=== PATIENT | female | born 1960 | race Caucasian/White ===

== ENCOUNTER → 2017-10-14 09:56 | Outpatient (POV) | payer OTHER, MEDICARE, SELFPAY ==
--- NOTE | 2017-10-14 10:54 | HMH.PAINSOAP ---
[facility] [place] Pain Management SOAP Note Subjective:: This patient is a pleasant 57-year-old white female who presents with increasing low back pain radiating down both legs. She has had lumbar epidural steroid injections in the past which have helped tremendously. It has been several months since her last injection. Her low back pain originates from a [employer]. injury. Her pain is starting to return in her back and down her legs. I do believe that she would benefit from a repeat lumbar epidural steroid injection. We will seek approval and schedule a lumbar epidural steroid injection at L4-L5. Objective:: Alert and oriented ?3 in no acute distress. Tenderness over lower lumbar spine. Motor strength of the lower extremities is 5/5. There is no gross sensory deficit. Assessment:: Degenerative disc disease of lumbar spine with lumbar radiculopathy symptoms. Plan:: We will seek approval and plan on a lumbar epidural steroid injection to help with her back pain and leg pain.
[2017-10-14 12:08] VITALS: BP 174/94; PULSE 75; RESP 18; TEMP 36.6; O2SAT 98; BMI 41.5
== END ==
PROVIDERS: PCP Pediatrics; Visit Provider Anesthesiology
DX: M54.16 Radiculopathy, lumbar region (principal)
CPT/HCPCS: 99212

== ENCOUNTER → 2017-12-30 11:06 | Outpatient (POV) | payer OTHER, MEDICARE, SELFPAY ==
[2017-12-30 11:19] VITALS: BP 172/110; PULSE 90; RESP 18; O2SAT 98; BMI 36.6
--- NOTE | 2017-12-30 11:19 | HMH.PAINSOAP ---
[facility] Pain Management SOAP Note Subjective:: Patient is a pleasant 57-year-old white female who we are treating for post laminectomy syndrome of the lumbar spine with degenerative disc disease of lumbar spine and lumbar radiculopathy. Patient is following up after most recent L4-L5 lumbar epidural steroid injection. She rates her pain a 4 out of 10 today. She states that she has had 80-90% relief of her symptoms. Patient states her pain is a little increased today due to her increased activity. Patient has been able to go swimming and do other activities. Patient is continuing to use anti-inflammatories to help with the small flares in pain. Patient would like to follow-up on an as-needed basis. ROS General: no recent weight change, no fever, no sleep disturbances Respiratory: no cough, no shortness of air, no recurring pulmonary infections Cardiovascular/Peripheral Vascular: No chest pain, No palpitations, no edema, no shortness of breath. Gastrointestinal: no incontinence, normal bowel movements reported Genitourinary: no incontinence Musculoskeletal: Back pain, leg pain Psychiatric: normal mood/ affect Neurological: [denies weakness in extremities], [denies balance issues] Objective:: Physical Exam General: Alert and oriented x3, no acute distress, pleasant and cooperative, [on room air] Lungs: Resps E/U, Symmetrical chest expansion, Eyes: PERRL Musculoskeletal: Flexion and extension of lumbar spine somewhat guarded secondary to pain, deep tendon reflexes normal, strength in upper and lower extremities [5/5], slightly antalgic gait noted Neurological: speech clear, emergency telecommunications dispatcher equal, no gross sensory deficits Assessment:: Degenerative disc disease of the lumbar spine with lumbar radiculopathy symptoms, postlaminectomy syndrome of the lumbar spine Plan:: We will follow-up with this patient on an as-needed basis. Patient is doing extremely well. Patient will call us when she needs another injection. This note was dictated using voice recognition software and may contain errors or omissions
== END ==
PROVIDERS: PCP Pediatrics; Visit Provider Clinical Nurse Specialist Family Health
DX: M54.16 Radiculopathy, lumbar region (principal)
CPT/HCPCS: 99212

== ENCOUNTER → 2018-04-07 14:31 | Outpatient (POV) | payer MEDICARE, SELFPAY ==
--- NOTE | 2018-04-07 14:43 | HMH.PAINSOAP ---
[facility] Pain Management SOAP Note Subjective:: Patient is a pleasant 58-year-old white female who presents today for follow-up. Patient has been receiving lumbar epidural steroid injections from us and receives 80-90% relief of her symptoms for several months. Patient is being treated for pain secondary to postlaminectomy syndrome and degenerative disc disease lumbar spine. Patient's not on any blood thinner. Patient is on an anti-inflammatory. We will schedule her for a L4-L5 lumbar epidural steroid injection. ROS General: no recent weight change, no fever, no sleep disturbances Respiratory: no cough, no shortness of air, no recurring pulmonary infections Cardiovascular/Peripheral Vascular: No chest pain, No palpitations, no edema, no shortness of breath. Gastrointestinal: no incontinence, normal bowel movements reported Genitourinary: no incontinence Musculoskeletal: Back pain, leg pain Psychiatric: normal mood/ affect Neurological: [denies weakness in extremities], [denies balance issues] Objective:: Physical Exam General: Alert and oriented x3, no acute distress, pleasant and cooperative, [on room air] Lungs: Resps E/U, Symmetrical chest expansion, Eyes: PERRL Musculoskeletal: Flexion and extension of lumbar spine somewhat guarded secondary to pain, deep tendon reflexes normal, strength in upper and lower extremities [5/5], slightly antalgic gait noted, positive positive straight leg raise test on the left side at 30 degrees Neurological: speech clear, rattle leak and squeak repairer equal, no gross sensory deficits Assessment:: Postlaminectomy syndrome lumbar spine, degenerative disc disease lumbar spine Plan:: We will schedule a repeat L4-L5 lumbar epidural steroid injection for the patient. Patient is continuing a home stretching program. I will follow-up with her after her injection. This note was dictated using voice recognition software and may contain errors or omissions
[2018-04-07 14:46] VITALS: BP 158/92; PULSE 80; RESP 18; O2SAT 98; BMI 39.9
== END ==
PROVIDERS: PCP Pediatrics; Visit Provider Clinical Nurse Specialist Family Health
DX: M96.1 Postlaminectomy syndrome, not elsewhere classified (principal); M51.36 Other intervertebral disc degeneration, lumbar region
CPT/HCPCS: 99213

== ENCOUNTER → 2018-06-30 11:04 | Outpatient (POV) | payer OTHER, SELFPAY ==
[2018-06-30 11:32] VITALS: BP 147/97; PULSE 89; RESP 18; O2SAT 98; BMI 39.9
--- NOTE | 2018-06-30 11:47 | HMH.PAINSOAP ---
[facility] Pain Management SOAP Note Subjective:: Patient is a pleasant 58-year-old who presents today for follow-up. Patient is doing well after her lumbar epidural steroid injection. She states that she is gotten 80% relief of her symptomology. Patient states this typically last for about 3 months. Patient would like to repeat this in 3 months. She rates her pain a 6 out of 10 today. Mostly in her back and legs at times. ROS General: no recent weight change, no fever, no sleep disturbances Respiratory: no cough, no shortness of air, no recurring pulmonary infections Cardiovascular/Peripheral Vascular: No chest pain, No palpitations, no edema, no shortness of breath. Gastrointestinal: no incontinence, normal bowel movements reported Genitourinary: no incontinence Musculoskeletal: Back pain, leg pain Psychiatric: normal mood/ affect Neurological: [denies weakness in extremities], [denies balance issues] Objective:: Physical Exam General: Alert and oriented x3, no acute distress, pleasant and cooperative, [on room air] Lungs: Resps E/U, Symmetrical chest expansion, Eyes: PERRL Musculoskeletal: Flexion and extension of lumbar spine somewhat guarded secondary to pain, deep tendon reflexes normal, strength in upper and lower extremities [5/5], [abnormal gait noted] Neurological: speech clear, assisted living administrator equal, no gross sensory deficits Assessment:: Degenerative disc disease lumbar spine with lumbar radiculopathy symptoms and postlaminectomy syndrome lumbar spine Plan:: We will follow-up with her and to schedule L4-L5 lumbar epidural steroid injection 3 months after her last one. Patient is not on any anticoagulation therapy. She is continuing a home stretching regimen. Patient is on anti-inflammatories. This note was dictated using voice recognition software and may contain errors or omissions
== END ==
PROVIDERS: PCP Pediatrics; Visit Provider Clinical Nurse Specialist Family Health
DX: M51.16 Intervertebral disc disorders with radiculopathy, lumbar region (principal); M96.1 Postlaminectomy syndrome, not elsewhere classified
CPT/HCPCS: 99213

== ENCOUNTER → 2019-01-27 08:55 | Outpatient (POV) | payer OTHER, SELFPAY ==
--- NOTE | 2019-01-27 09:11 | HMH.PAINSOAP ---
[facility] Pain Management SOAP Note Subjective:: Patient's a pleasant 58-year-old white female who presents today for follow-up. Patient was last seen back in August for an epidural injection. She got 80% relief for several months. She would like to move forward with the second 1. She is not on any anticoagulation therapy she rates her pain a 9 out of 10 mostly in her low back radiating into bilateral legs. Patient has done well with injections in the past. We also talked about adding an anti-inflammatory. She is interested in this. She is not on any anticoagulation therapy and she is continuing a home stretching program. ROS General: no recent weight change, no fever, no sleep disturbances Respiratory: no cough, no shortness of air, no recurring pulmonary infections Cardiovascular/Peripheral Vascular: No chest pain, No palpitations, no edema, no shortness of breath. Gastrointestinal: no incontinence, normal bowel movements reported Genitourinary: no incontinence Musculoskeletal: Back pain, leg pain Psychiatric: normal mood/ affect Neurological: [denies weakness in extremities], [denies balance issues] Objective:: Physical Exam General: Alert and oriented x3, no acute distress, pleasant and cooperative, [on room air] Lungs: Resps E/U, Symmetrical chest expansion, Eyes: PERRL Musculoskeletal: Flexion and extension of lumbar spine somewhat guarded secondary to pain, deep tendon reflexes normal, strength in upper and lower extremities [5/5], [abnormal gait noted] Neurological: speech clear, credit risk management director equal, no gross sensory deficits Assessment:: Degenerative disc disease lumbar spine with lumbar radiculopathy Plan:: We will schedule repeat L4-L5 given the efficacy of the last one. We will also call her in naproxen 500 mg 1 p.o. twice daily. She is been instructed to call the office if she has any issues prior to her next appointment. Dr. Vela has reviewed this note and agrees with this plan of care. This note was dictated using voice recognition software and may contain errors or omissions Pain Management Hx Components *Have you ever received a pneumonia vaccine?: No *Have you received a flu vaccine this season?: No - *Social History *Occupational Status:: employed *Travel in the last 8 weeks: None
[2019-01-27 09:12] VITALS: BP 173/91; PULSE 81; RESP 18; O2SAT 99; BMI 39.9
--- NOTE | 2019-01-27 09:14 | P.CONS_ITS ---
[facility] Pain Management SOAP Note Subjective:: Patient's a pleasant 58-year-old white female who presents today for follow-up. Patient was last seen back in August for an epidural injection. She got 80% relief for several months. She would like to move forward with the second 1. She is not on any anticoagulation therapy she rates her pain a 9 out of 10 mostly in her low back radiating into bilateral legs. Patient has done well with injections in the past. We also talked about adding an anti-inflammatory. She is interested in this. She is not on any anticoagulation therapy and she is continuing a home stretching program. ROS General: no recent weight change, no fever, no sleep disturbances Respiratory: no cough, no shortness of air, no recurring pulmonary infections Cardiovascular/Peripheral Vascular: No chest pain, No palpitations, no edema, no shortness of breath. Gastrointestinal: no incontinence, normal bowel movements reported Genitourinary: no incontinence Musculoskeletal: Back pain, leg pain Psychiatric: normal mood/ affect Neurological: [denies weakness in extremities], [denies balance issues] Objective:: Physical Exam General: Alert and oriented x3, no acute distress, pleasant and cooperative, [on room air] Lungs: Resps E/U, Symmetrical chest expansion, Eyes: PERRL Musculoskeletal: Flexion and extension of lumbar spine somewhat guarded secondary to pain, deep tendon reflexes normal, strength in upper and lower extremities [5/5], [abnormal gait noted] Neurological: speech clear, manager instrumentation equal, no gross sensory deficits Assessment:: Degenerative disc disease lumbar spine with lumbar radiculopathy Plan:: We will schedule repeat L4-L5 given the efficacy of the last one. We will also call her in naproxen 500 mg 1 p.o. twice daily. She is been instructed to call the office if she has any issues prior to her next appointment. Dr. Vela has reviewed this note and agrees with this plan of care. This note was dictated using voice recognition software and may contain errors or omissions Pain Management Hx Components *Have you ever received a pneumonia vaccine?: No *Have you received a flu vaccine this season?: No - *Social History *Occupational Status:: employed *Travel in the last 8 weeks: None
== END ==
PROVIDERS: Visit Provider Clinical Nurse Specialist Family Health
DX: M51.16 Intervertebral disc disorders with radiculopathy, lumbar region (principal)
CPT/HCPCS: 99212

== ENCOUNTER → 2019-08-03 09:43 | Outpatient (POV) | payer OTHER, SELFPAY ==
[2019-08-03 10:27] VITALS: BP 135/78; PULSE 79; RESP 18; O2SAT 99; BMI 39.9
--- NOTE | 2019-08-03 10:31 | HMH.PAINSOAP ---
[facility] Pain Management SOAP Note Subjective:: Patient is a pleasant 59-year-old white female who presents today for follow-up. She is being treated for low back pain with lumbar radiculopathy symptoms. She was seen in January 2019 for a lumbar epidural steroid injection at that time. Patient had a accident involving a bill of pain in 2002 requiring the patient to undergo 2 lumbar spine surgeries. She has also had injections since her surgeries. She is also had a spinal cord stimulator that is no longer bothering relief for her. Patient says that she was doing better following her lumbar epidural steroid injection until the last month. She says her pain is progressively gotten worse. The patient rates her pain a 10 out of 10. She says the pain is worse with standing and walking and is also worse with sitting for prolonged periods. She says she has to reposition often when in a chair. Patient says that it is radiating into her bilateral feet causing her to have numbness and tingling. She has tried physical therapy for greater than 6 weeks, most notably within the last 2 months. She continues with home stretching program. She is also tried anti-inflammatories. She continues using ice and heat therapies. Review of Systems General: No recent weight changes, no fever, no sleep disturbances Respiratory: No cough, no shortness of air, no recurring pulmonary infections Cardiovascular/peripheral vascular: No chest pain, no palpitations, no edema, no shortness of breath Gastrointestinal: No new onset incontinence, normal bowel movements reported Genitourinary: No new onset incontinence Musculoskeletal: Low back pain Psychiatric: Normal mood/affect Neurological: [Denies weakness in extremities], [denies balance issues] Objective:: Physical exam General: Alert and oriented x3, no acute distress, pleasant and cooperative, room air Lungs: Respirations even and unlabored, symmetrical chest expansion Eyes: PERRL Musculoskeletal: Flexion and extension of lumbar spine somewhat guarded secondary to pain, deep tendon reflexes normal, strength in upper and lower extremities [5/5], [abnormal gait noted] Neurological: Speech clear, echo tech equal, no gross sensory deficit Assessment:: Degenerative disc disease lumbar spine with lumbar radiculopathy symptoms Plan:: We will schedule the patient for a lumbar epidural steroid injection at L4-L5. She has had the injection in the past and has gotten good relief for up to 5 months. I think she would benefit from a another injection. She is not on any anticoagulation therapy. She understands she will need a motor coach driver the day of the procedure. Patient will continue with anti-inflammatories and a home stretching program. I did instruct her on the amount of ibuprofen she has been taking. We will give her Duexis to see if she gets relief with this. I will see the patient back in the clinic following her injection to reassess her symptoms. She has been instructed to contact clinic if she has any concerns before her next appointment. Dr. Vela has reviewed this note and agrees with this plan of care. This note was dictated using voice recognition software and make contain errors or omissions. [facility] History Medical History: Reports:: Diabetes Mellitus Type 1, Hypertension Denies:: Cancer, Diabetes Mellitus Type 2, Internal Pacemaker, MRSA, Seizures *Have you ever received a pneumonia vaccine?: Yes *Have you received a flu vaccine this season?: Yes Other Medical History: Reports: Hypothyroidism, Thyroid Disease Laterality Cases: Bilateral: Carpal Tunnel Release Other Surgeries: Yes: No Previous Surgery. No: Pacemaker Amputation: No Fractures: No - *Social History Smoking Status: Former smoker Tobacco Type: cigarettes Alcohol Intake: never Alcohol Intake Frequency:: a few times a month Substance Use Type: denies use *Occupational Status:: other Housing: house Household Members: family *Travel in the
== END ==
PROVIDERS: PCP Pediatrics; Visit Provider Clinical Nurse Specialist Family Health
DX: M51.16 Intervertebral disc disorders with radiculopathy, lumbar region (principal)
CPT/HCPCS: 99212

== ENCOUNTER → 2019-09-14 10:07 | Outpatient (POV) | payer OTHER, SELFPAY ==
--- NOTE | 2019-09-14 10:54 | HMH.PAINSOAP ---
[facility] Pain Management SOAP Note Subjective:: Patient is a pleasant 59-year-old white female who presents today for follow-up after lumbar epidural steroid injection. She is being treated for pain in her low back with radiation into her left leg. Patient says that she got relief following the injection, however, she is return. Rates her pain a 6 out of 10 today. Patient says that the pain is worse with walking and standing and is relieved with sitting. She would like to undergo another injection. She does understand that we are unable to perform any type of injective therapy secondary to coronavirus pandemic at this time. Patient says that she has taken Flexeril in the past and has gotten approximately 40% relief with the medication. She is asking for the medication today until she is able to get an injection. Patient denies any allergies to medications. Review of Systems General: No recent weight changes, no fever, no sleep disturbances Respiratory: No cough, no shortness of air, no recurring pulmonary infections Cardiovascular/peripheral vascular: No chest pain, no palpitations, no edema, no shortness of breath Gastrointestinal: No new onset incontinence, normal bowel movements reported Genitourinary: No new onset incontinence Musculoskeletal: Low back pain, left leg pain Psychiatric: Normal mood/affect Neurological: [Denies weakness in extremities], [denies balance issues] Objective:: Physical exam General: Alert and oriented x3, no acute distress, pleasant and cooperative, [on room air] Lungs: Respirations even and unlabored, symmetrical chest expansion Eyes: PERRL Musculoskeletal: Flexion and extension of [] lumbar spine somewhat guarded secondary to pain, deep tendon reflexes normal, strength in upper and lower extremities [5/5], [abnormal gait noted] Neurological: Speech clear, clearing distribution clerk equal, no gross sensory deficit Assessment:: Degenerative disc disease lumbar spine with lumbar radiculopathy symptoms Plan:: We will plan to perform another lumbar epidural steroid injection and patient are cleared for the facility to begin procedures again. For now, we will call in Flexeril 10 mg 1 tablet p.o. 3 times daily. Patient has been instructed to contact clinic if she has any concerns before next appointment. Dr. Vela has reviewed this note and agrees with this plan of care. This note was dictated using voice recognition software and make contain errors or omissions. [facility] History I have reviewed the patient's past medical history: Yes Medical History: Reports:: Hypertension Denies:: Cancer, Diabetes Mellitus Type 1, Diabetes Mellitus Type 2, Internal Pacemaker, MRSA, Seizures *Have you ever received a pneumonia vaccine?: No *Have you received a flu vaccine this season?: No Other Medical History: Reports: Hypothyroidism, Thyroid Disease. Denies: Blood Transfusion Reaction Laterality Cases: Bilateral: Carpal Tunnel Release Other Surgeries: Yes: No Previous Surgery. No: Pacemaker Amputation: No Fractures: No - *Social History Smoking Status: Former smoker Tobacco Type: cigarettes Alcohol Intake: never Alcohol Intake Frequency:: a few times a month Substance Use Type: denies use *Occupational Status:: disabled Housing: house Household Members: family *Travel in the last 8 weeks: None Family Hx:: Cancer, Diabetes
[2019-09-14 11:15] VITALS: BP 174/84; PULSE 78; RESP 18; O2SAT 98; BMI 39.9
== END ==
PROVIDERS: PCP Pediatrics; Visit Provider Clinical Nurse Specialist Family Health
DX: M51.16 Intervertebral disc disorders with radiculopathy, lumbar region (principal)
CPT/HCPCS: 99212

== ENCOUNTER 2019-12-11 10:42 | Day surgery (SDC) | payer OTHER, SELFPAY ==
[2019-12-11 11:48] VITALS: BP 157/89; PULSE 87; RESP 18; TEMP 36.7; O2SAT 97; BMI 39.9
--- NOTE | 2019-12-11 11:58 | HMH.PMPROC ---
- Procedure Date: 12/11/19 Time: 11:58 Anesthesiologist:: Colin Vela MD Complications:: None Pre-procedure Diagnosis:: Degenerative disc disease of lumbar spine with lumbar radiculopathy symptoms Post-procedure Diagnosis:: Same Indications for Procedure:: This patient is a pleasant 59-year-old white female who we are treating for low back pain with lumbar radiculopathy symptoms. She did very well after last lumbar epidural steroid injection however her pain in her back and down her left leg is now returned. She presents for repeat lumbar epidural steroid injection under fluoroscopy today. Procedure Details:: Lumbar epidural steroid injection under fluoroscopy Informed consent was obtained and the risk and benefits of the procedure was explained to the patient. The patient was taken to the procedure room. The patient was placed prone on the procedure table. The patient was prepped and draped in sterile fashion. C-arm fluoroscopy was used to view the lumbar spine. Skin and subcutaneous tissues were anesthetized using lidocaine. I placed an 18-gauge epidural needle and advanced into the L4-L5 interspace using fluoroscopic guidance and [id number] to air. After confirmation of needle placement in the epidural space with dye I injected 2 mL of lidocaine 1.5% with Depo-Medrol 80 mg. Patient tolerated the procedure well with no complications. Plan and Disposition:: We will follow-up with her in 2 weeks. Will reevaluate her symptoms at that time.
[2019-12-11 12:06] VITALS: BP 142/87; PULSE 85; RESP 18; O2SAT 99
[2019-12-11 12:07] VITALS: BP 145/89; PULSE 89; RESP 18; O2SAT 99
[2019-12-11 12:20] VITALS: BP 163/95; PULSE 75; RESP 18; O2SAT 97
== END 2019-12-11 12:20 | disposition home or self-care (01) ==
LOC: SC.PAINP 10:43
PROVIDERS: PCP Pediatrics; Visit Provider Anesthesiology
DX: M51.16 Intervertebral disc disorders with radiculopathy, lumbar region (principal); I10 Essential (primary) hypertension; Z96.659 Presence of unspecified artificial knee joint; Z82.49 Family history of ischemic heart disease and other diseases of the circulatory system; Z79.899 Other long term (current) drug therapy
CPT/HCPCS: 62323; J1040; Q9966

== ENCOUNTER → 2020-01-07 13:34 | Outpatient (POV) | payer MEDICARE, SELFPAY ==
[2020-01-07 13:42] VITALS: BP 142/88; PULSE 72; RESP 18; TEMP 36.6; O2SAT 97; BMI 39.9
--- NOTE | 2020-01-07 14:05 | HMH.PMCON ---
Assessment and Plan (1) Compression fracture of lumbar vertebra Current visit: Yes Status: Acute Category: Medical Code(s): S32.000A - Wedge compression fracture of unspecified lumbar vertebra, initial encounter for closed fracture (2) Low back pain Current visit: Yes Status: Acute Category: Medical Code(s): M54.5 - Low back pain - Assessment and plan all Dx Assessment and Plan for all problems:: We will make recommendations for an MRI of her lumbar spine. The patient may be a candidate for kyphoplasty. We did discuss the procedure with the patient today. We will also order the patient a brace for stabilization when out of bed. We will see her upon discharge in the clinic to review her MRI and discuss a further plan of care. Patient has been instructed to contact the clinic if she has any concerns before next appointment. The patient and I specifically discussed risk factors for COVID19. These risks include, but are not limited to age greater than 60, heart or lung disease, diabetes, immunosuppression, and travel. We also discussed NSAIDs may worsen COVID19 infection or symptoms. Patient should not use NSAIDs to treat COVID19 signs or symptoms. Patient was also informed that any type of corticosteroid of any form (oral or injection) will decrease the patient's immune system response and may increase the likelihood of COVID19 infection and symptoms[address] Dr. Vela has reviewed this note and agrees with this plan of care. This note was dictated using voice recognition software and make contain errors or omissions. HPI - Data of Consult Patient: new to practice Consult date: 01/07/20 Requesting Physician: Kathy Stearns APRN Primary Care Provider: Ward Krishna - Consult Narrative Reason for consult: Back pain History of present illness: Ms. Tierney is a 59 year old female who is currently hospitalized for low back pain. Patient was seen her hospital room today. Patient says that she was getting up to go to the bathroom around 4 AM this morning and fell. She rates her pain a 4 out of 10 today. Patient is having quite a bit of nausea during the conversation with emesis. She rates her pain a 4 out of 10 today. She did have a CT scan that shows a compression fracture at L1. She and I did discuss undergoing an MRi After further discussion with Dr. Vela. She is in agreement she would like to undergo an MRI to determine if she is a kyphoplasty candidate. Patient did have a DEXA scan in 2012 that did indicate the patient does have osteoporosis. CC: Kathy Stearns APRN [facility] History I have reviewed the patient's past medical history: Yes Medical History: Reports:: Hypertension Denies:: Cancer, Diabetes Mellitus Type 1, Diabetes Mellitus Type 2, Internal Pacemaker, MRSA, Seizures *Have you ever received a pneumonia vaccine?: Yes *Have you received a flu vaccine this season?: Yes Other Medical History: Reports: Hypothyroidism, Thyroid Disease. Denies: Blood Transfusion Reaction Laterality Cases: Bilateral: Carpal Tunnel Release Other Surgeries: Yes: No Previous Surgery, Colonoscopy. No: Pacemaker Amputation: No Fractures: No - *Social History Smoking Status: Never smoker Tobacco Type: cigarettes Alcohol Intake: current Alcohol Intake Frequency:: holidays/special occasions only Substance Use Type: denies use *Occupational Status:: other Housing: house Household Members: significant other *Travel in the last 8 weeks: None Family Hx:: Heart Attack Review of Systems - Review of Systems Review of Systems General: No recent weight changes, no fever, no sleep disturbances Respiratory: No cough, no shortness of air, no recurring pulmonary infections Cardiovascular/peripheral vascular: No chest pain, no palpitations, no edema, no shortness of breath Gastrointestinal: No new onset incontinence, normal bowel movements reported Genitourinary: No new onset incontinence Musculoskeletal: Low back p
== END ==
PROVIDERS: PCP Pediatrics; Visit Provider Clinical Nurse Specialist Family Health
DX: S32.000A Wedge compression fracture of unspecified lumbar vertebra, initial encounter for closed fracture (principal)
CPT/HCPCS: 99212

== ENCOUNTER → 2020-07-11 10:01 | Outpatient (POV) | payer OTHER, MEDICARE, SELFPAY ==
[2020-07-11 10:36] VITALS: BP 200/105; PULSE 92; RESP 20; TEMP 36.5; O2SAT 96; BMI 39.9
--- NOTE | 2020-07-11 13:01 | P.CONS_ITS ---
[facility] Pain Management SOAP Note Subjective:: Patient is a pleasant 60-year-old white female who presents today for follow-up. Patient was seen last year in our office for epidural injections. Patient did extremely well with this stating that she got 80% relief for several months. Patient did get hospitalized for a compression fracture however she wanted to hold off on treatment from our office at the time. This was back in December of last year. Patient now states that her original back pain from her back radiating into her legs has returned. She would like to repeat her lumbar epidural steroid injections. She is not on any anticoagulation therapy. ROS General: no recent weight change, no fever, no sleep disturbances Respiratory: no cough, no shortness of air, no recurring pulmonary infections Cardiovascular/Peripheral Vascular: No chest pain, No palpitations, no edema, no shortness of breath. Gastrointestinal: no new onset incontinence, normal bowel movements reported Genitourinary: no new onset incontinence Musculoskeletal: Back pain, leg pain Psychiatric: normal mood/ affect Neurological: [denies new onset weakness in extremities], [denies new onset balance issues] Objective:: Physical Exam General: Alert and oriented x3, no acute distress, pleasant and cooperative, [on room air] Lungs: Resps E/U, Symmetrical chest expansion, Eyes: PERRL Musculoskeletal: Flexion and extension of lumbar spine somewhat guarded secondary to pain, deep tendon reflexes normal, strength in upper and lower extremities [5/5], [abnormal gait noted] Neurological: speech clear, zipper slide attacher equal, no gross sensory deficits Assessment:: Degenerative disc disease lumbar spine lumbar radiculopathy Plan:: We will set the patient up for an L4-L5 lumbar epidural steroid injection given the efficacy of this in the past I do believe it would benefit her. I will follow-up with her afterwards reassess her symptoms at that time she has been instructed to call the office if she has any issues prior to her next appointment. Dr. Vela has reviewed this note and agrees with this plan of care. This note was dictated using voice recognition software and may contain errors or omissions [facility] History I have reviewed the patient's past medical history: Yes Medical History: Reports:: Hypertension Denies:: Cancer, Diabetes Mellitus Type 1, Diabetes Mellitus Type 2, Internal Pacemaker, MRSA, Seizures *Have you ever received a pneumonia vaccine?: Yes *Have you received a flu vaccine this season?: Yes Other Medical History: Reports: Hypothyroidism, Thyroid Disease. Denies: Blood Transfusion Reaction Laterality Cases: Bilateral: Carpal Tunnel Release Other Surgeries: Yes: No Previous Surgery, Colonoscopy. No: Pacemaker Amputation: No Fractures: No - *Social History Smoking Status: Never smoker Tobacco Type: cigarettes Alcohol Intake: current Alcohol Intake Frequency:: holidays/special occasions only Substance Use Type: denies use *Occupational Status:: unemployed Housing: house Household Members: significant other *Travel in the last 8 weeks: None Family Hx:: Heart Attack
== END ==
PROVIDERS: Visit Provider Clinical Nurse Specialist Family Health
DX: M51.16 Intervertebral disc disorders with radiculopathy, lumbar region (principal)
CPT/HCPCS: 99212; G0463

== ENCOUNTER 2020-08-05 09:53 | Day surgery (SDC) | payer OTHER, MEDICARE, SELFPAY ==
[2020-08-05 09:57] VITALS: BP 175/115; PULSE 95; TEMP 35.9; O2SAT 97; BMI 39.9
[2020-08-05 10:53] VITALS: BP 142/78; PULSE 85; RESP 18; O2SAT 98
[2020-08-05 10:54] VITALS: BP 140/71; PULSE 85; RESP 18; O2SAT 98
[2020-08-05 11:05] VITALS: BP 169/87; PULSE 75; RESP 18; O2SAT 97
--- NOTE | 2020-08-05 12:31 | HMH.PMPROC ---
- Procedure Date: 08/05/20 Time: 12:31 Anesthesiologist:: Colin Vela MD Complications:: None Pre-procedure Diagnosis:: Degenerative disc disease of lumbar spine with lumbar radiculopathy symptoms Post-procedure Diagnosis:: Same Indications for Procedure:: Patient is a pleasant 60-year-old white female who we are treating for low back pain with lumbar radiculopathy symptoms. She does have some back pain with radiation into her legs. She has done well in the past and presents for repeat lumbar epidural steroid injection today. Her last injection was several months ago. Procedure Details:: Lumbar epidural steroid injection under fluoroscopy Informed consent was obtained and the risk and benefits of the procedure was explained to the patient. The patient was taken to the procedure room. The patient was placed prone on the procedure table. The patient was prepped and draped in sterile fashion. C-arm fluoroscopy was used to view the lumbar spine. Skin and subcutaneous tissues were anesthetized using lidocaine. I placed an 18-gauge epidural needle and advanced into the L4-L5 interspace using fluoroscopic guidance and [id number] to air. After confirmation of needle placement in the epidural space with dye I injected 2 mL of lidocaine 1.5% with Depo-Medrol 80 mg. Patient tolerated the procedure well with no complications. Plan and Disposition:: We will follow-up with her in 2 weeks. Will reevaluate her symptoms at that time.
== END 2020-08-05 11:07 | disposition home or self-care (01) ==
LOC: SC.PAINP 09:55
PROVIDERS: PCP Pediatrics; Visit Provider Anesthesiology
DX: M51.16 Intervertebral disc disorders with radiculopathy, lumbar region (principal); I10 Essential (primary) hypertension; E03.9 Hypothyroidism, unspecified; Z87.39 Personal history of other diseases of the musculoskeletal system and connective tissue; Z79.899 Other long term (current) drug therapy
CPT/HCPCS: 62323; J1040; Q9966

== ENCOUNTER → 2020-12-12 08:45 | Outpatient (POV) | payer OTHER, SELFPAY ==
[2020-12-12 09:03] VITALS: BP 169/90; PULSE 73; RESP 18; O2SAT 97; BMI 39.9
--- NOTE | 2020-12-12 09:15 | HMH.PAINSOAP ---
[facility] Pain Management SOAP Note Subjective:: Patient is a 60-year-old white female who presents today for complaints of low back pain with radiation into right foot and leg. Patient is having numbness and tingling into her right lower extremity. She says that her pain is usually present on the left side. She has pain when she is standing and walking. Sitting does give her some relief. She rates her pain a 10 out of 10 today. She has had lumbar epidural steroid injections, which is she gets up to 90% relief for up to 5 months. Her pain has returned to the opposite side. Review of Systems General: No recent weight changes, no fever, no sleep disturbances Respiratory: No cough, no shortness of air, no recurring pulmonary infections Cardiovascular/peripheral vascular: No chest pain, no palpitations, no edema, no shortness of breath Gastrointestinal: No new onset incontinence, normal bowel movements reported Genitourinary: No new onset incontinence Musculoskeletal: Low back pain with radiation into right leg with numbness and tingling in foot Psychiatric: Normal mood/affect Neurological: [Denies weakness in extremities], [denies balance issues] Objective:: Physical exam General: Alert and oriented x3, no acute distress, pleasant and cooperative, [on room air] Lungs: Respirations even and unlabored, symmetrical chest expansion Eyes: PERRL Musculoskeletal: Flexion and extension of [] lumbar spine somewhat guarded secondary to pain, deep tendon reflexes normal, strength in upper and lower extremities [5/5], [abnormal gait noted] Neurological: Speech clear, legal aid equal, no gross sensory deficit Assessment:: Degenerative disc disease lumbar spine with lumbar radiculopathy symptoms Plan:: We will schedule the patient for lumbar epidural steroid injection at L4-L5. Her pain has returned, however, to the opposite side. She is got between 80 to 90% relief for up to 5 months with her previous injection. We will also order the patient Cymbalta 30 mg 1 tablet p.o. daily to see if this helps with her neuropathic pain. She will continue with home stretching and anti-inflammatories. We will see her back after her injection for reevaluation. She has tried and failed conservative therapies of physical therapy for greater than 6 weeks in the past and ice and heat. Risks and benefits of the procedure have been explained to the patient. Patient would like to proceed with the procedure. Possible side effects of corticosteroids have been discussed with the patient. Patient has been instructed to contact the clinic with any concerns before the next appointment. Dr. Vela has reviewed this note and agrees with this plan of care. This note was dictated using voice recognition software and make contain errors or omissions. [facility] History I have reviewed the patient's past medical history: Yes Medical History: Reports:: Hypertension Denies:: Cancer, Diabetes Mellitus Type 1, Diabetes Mellitus Type 2, Internal Pacemaker, MRSA, Seizures *Have you ever received a pneumonia vaccine?: No *Have you received a flu vaccine this season?: No Other Medical History: Reports: Hypothyroidism, Thyroid Disease. Denies: Blood Transfusion Reaction Laterality Cases: Bilateral: Carpal Tunnel Release Other Surgeries: Yes: No Previous Surgery, Colonoscopy. No: Pacemaker Amputation: No Fractures: No - *Social History Smoking Status: Never smoker Tobacco Type: cigarettes Alcohol Intake: never Alcohol Intake Frequency:: holidays/special occasions only Substance Use Type: denies use *Occupational Status:: unemployed Housing: house Household Members: significant other *Travel in the last 8 weeks: None Family Hx:: Heart Attack
== END ==
PROVIDERS: PCP Pediatrics; Visit Provider Clinical Nurse Specialist Family Health
DX: M51.16 Intervertebral disc disorders with radiculopathy, lumbar region (principal)
CPT/HCPCS: 99212; G0463

== ENCOUNTER 2020-12-15 15:39 | Emergency (ER) | payer MEDICARE, SELFPAY ==
[2020-12-15 15:40] VITALS: BP 199/94; PULSE 80; RESP 18; TEMP 36.7; O2SAT 95; BMI 39.9
--- NOTE | 2020-12-15 15:59 | XR_ITS ---
PROCEDURE INFORMATION: Exam: XR Lumbosacral Spine Exam date and time: 12/15/2020 3:59 PM Age: 60 years old Clinical indication: Low back pain; Patient HX: Fall, RT hip pain TECHNIQUE: Imaging protocol: XR of the lumbosacral spine. Views: 2 or 3 views. COMPARISON: No relevant prior studies available. FINDINGS: Bones/joints: L5-S1 fusion. Multilevel degenerative disc disease, most prominent at L4-L5. Soft tissues: Biomedical device/cyst neural stimulator. IMPRESSION: No acute findings.
--- NOTE | 2020-12-15 16:04 | HMH.EDUTC ---
[facility] Disposition Clinical Impression: Low back pain Qualifiers: Chronicity: unspecified Back pain laterality: midline Sciatica presence: with sciatica Sciatica laterality: sciatica of right side Qualified Code(s): M54.41 - Lumbago with sciatica, right side Disposition: Home, Self-Care Condition on Discharge: Good Instructions: Low Back Pain, DI for Low Back Pain Additional Instructions: *Etodolac allie 6 hours with meal as needed for pain/inflammation *Not additional anti-inflammatory like Ibuprofen, motrin, aleve, advil with the above amount of Etodolac. You can still take Tylenol every 4 hours as needed if you need something else for pain *Ice 20 minutes every 2 hours for the first 48 hours after the initial injury followed by moist heat every 20 minutes 3-4 times a day to affected area *Muscle relaxer every 8 hours as needed for muscle spasms but remember, it WILL cause drowsiness You cannot take it and drive, operate machinery or care for small children. *Keep this area active, no movement leads to more stiffness, However take it easy and avoid heavy lifting pushing or pulling *Follow up with you family doctor if no improvement for further treatment Prescriptions: Etodolac 200 mg PO Q6HP PRN #20 cap PRN Reason: Moderate Pain Transmission Status: Pending to [id number] Cyclobenzaprine HCl [Flexeril 10mg tablet] 10 mg PO TID PRN #15 tab PRN Reason: Muscle Spasm Transmission Status: Pending to [id number] Referrals: Ward Krishna [Primary Care Provider] - As needed Medical Decision Making - Nir Inquiry Pt receiving controlled substance: No Nir was queried for this patient: No Vital Signs: 12/15/20 15:40 12/15/20 17:36 Temperature 98.0 F 98.0 F Temperature Source Oral Pulse Rate 80 Pulse Rate [Left Brachial] 80 Respiratory Rate 18 18 Blood Pressure 199/94 H Blood Pressure [Left Arm] 199/94 H Blood Pressure Mean [Left Arm] 129 Blood Pressure Source [Left Arm] Automatic Cuff Blood Pressure Position [Left Arm] Sitting 02 Sat by Pulse Oximetry 95 Oxygen Delivery Method Room Air Orders (Tests/Meds): ED MEDICATIONS Discontinued Medications Generic Name Dose Route Start Last Admin Trade Name Freq PRN Reason Stop Dose Admin Methylprednisolone Sodium Succinate 125 mg 12/15/20 17:26 12/15/20 17:27 Methylprednisolone Sod Succ 125mg Vial IM 12/15/20 17:27 125 mg ONCE ONE Administration - Radiology Data #1 Image(s): L-Spine Image Reviewed: Yes I have reviewed radiologist's interpretation IMPRESSION: No acute findings. #2 Image(s): Hip Image Reviewed: Yes I have reviewed radiologist's interpretation Preliminary Findings: Normal/NAD IMPRESSION: No acute findings. [facility] HPI - General Stated complaint: AO 12/07 fell at [place] injured Hip Time Seen by Provider: 12/15/20 16:04 Mode of Arrival: Ambulatory Source of Information: Patient Limitations: No Limitations Description of Symptoms (Recalled from Triage Doc. by RN): PATIENT STATES ON 12/07 SHE FELL [place]. C/O LOWER BACK AND RIGHT HIP PAIN SINCE THEN. HEENT Symptoms (Recalled from RN notes): No Resp Symptoms (Recalled from RN notes): No Skin Symptoms (Recalled from RN notes): No MS Symptoms (Recalled from RN notes): Yes Functional Status (Recalled from RN notes): WNL - History of Present Illness Provider Complaint: Patient states that she slipped and fell on a wet floor at [place] on 12/07/20 States that ever since she has been having pain in her lower back area and in her right hip and pain shoots into leg when she raises it from her hip State that she had back surgery many years ago and not had any back problems since her surgery Denies any other injury denies loss of control of bowel or bladder - Related Data Home Medications Medication Instructions Recorded Confirmed levothyroxine 75 mcg capsule 75 mcg PO ONCE 08/18/17 08/05/20 Amlodipine Besylate [Amlodipine 10 mg PO D
--- NOTE | 2020-12-15 16:14 | XR_ITS ---
PROCEDURE INFORMATION: Exam: XR Right Hip Exam date and time: 12/15/2020 4:14 PM Age: 60 years old Clinical indication: Right hip; Patient HX: Fall, RT hip pain TECHNIQUE: Imaging protocol: XR Right hip. Views: 2 or 3 views hip with pelvis when performed. COMPARISON: CR XR LUMBAR SPINE 2-3V 12/15/2020 4:02 PM FINDINGS: Bones/joints: No fracture, unremarkable right hip. L5-S1 fusion. Soft tissues: Unremarkable. IMPRESSION: No acute findings.
[2020-12-15 17:30] VITALS: BP 162/74
[2020-12-15 17:36] VITALS: BP 199/94; PULSE 80; RESP 18; TEMP 36.7; O2SAT 95
== END 2020-12-15 17:45 | disposition home or self-care (01) ==
PROVIDERS: Emergency Provider Physician Assistant; PCP Pediatrics
DX: M54.41 Lumbago with sciatica, right side (principal); W01.0XXA Fall on same level from slipping, tripping and stumbling without subsequent striking against object, initial encounter; Y92.89 Other specified places as the place of occurrence of the external cause; I10 Essential (primary) hypertension; E03.9 Hypothyroidism, unspecified
CPT/HCPCS: 72100; 73502; 96372; 99202; G0463

== ENCOUNTER 2020-12-23 08:40 | Day surgery (SDC) | payer OTHER, SELFPAY ==
[2020-12-23 08:59] VITALS: BP 187/82; PULSE 88; RESP 18; TEMP 36.6; O2SAT 98; BMI 39.9
[2020-12-23 09:24] VITALS: BP 167/99; PULSE 94; RESP 18; O2SAT 96
[2020-12-23 09:28] VITALS: BP 150/95; PULSE 92; RESP 18; O2SAT 96
--- NOTE | 2020-12-23 09:45 | HMH.PMPROC ---
- Procedure Date: 12/23/20 Time: 09:45 Anesthesiologist:: Symone Nguyễn MD Complications:: None Pre-procedure Diagnosis:: Degenerative disc disease of the lumbar spine, lumbar radiculopathy Post-procedure Diagnosis:: Same Indications for Procedure:: Patient is a very pleasant 60-year-old white female who presents today with chronic back pain radiating into both legs related to the above diagnosis. She has tried and failed conservative treatment including oral pain medications and home stretching program for greater than 6 weeks. She has previously undergone multiple lumbar epidural steroid injections in the past with significant pain relief, noting approximately 90% pain relief for 5 months. She notes that she fell a few weeks ago at [employer] in the garden section. She said she is slipped on some water that was on the floor and since then she has been having significantly increased pain in her low back going down her legs. She states that she was evaluated after the fall and had x-rays done of her back which did not show any signs of acute fractures. The plan for today is for her to undergo repeat lumbar epidural steroid injection at L3-L4. Procedure Details:: Informed consent was obtained and the risk and benefits of the procedure was explained to the patient. The patient was taken to the procedure room. The patient was placed prone on the procedure table. The patient was prepped and draped in sterile fashion. C-arm fluoroscopy was used to view the lumbar spine. Skin and subcutaneous tissues were anesthetized using lidocaine. I placed an 18-gauge epidural needle and advanced into the L3-L4 interspace using fluoroscopic guidance and [id number] to air and saline. After confirmation of needle placement in the epidural space with dye I injected 2 mL of lidocaine 1.0% with Depo-Medrol 80 mg. Patient tolerated the procedure well with no complications. Plan and Disposition:: We will follow up with her in 2 weeks. Will re-evaluate the patient in 2 weeks.
[2020-12-23 10:00] VITALS: BP 152/92; PULSE 77; RESP 20; O2SAT 98
== END 2020-12-23 10:00 | disposition home or self-care (01) ==
LOC: SC.PAINP 08:42
PROVIDERS: PCP Pediatrics; Visit Provider Anesthesiology Pain Medicine
DX: M51.16 Intervertebral disc disorders with radiculopathy, lumbar region (principal); I10 Essential (primary) hypertension; E07.9 Disorder of thyroid, unspecified; Z96.82 Presence of neurostimulator
CPT/HCPCS: 62323; J1040; Q9966

== ENCOUNTER → 2021-01-16 14:57 | Outpatient (POV) | payer OTHER, SELFPAY ==
[2021-01-16 15:21] VITALS: BP 144/82; PULSE 88; RESP 18; O2SAT 96; BMI 39.9
--- NOTE | 2021-01-16 15:45 | HMH.PAINSOAP ---
[facility] Pain Management SOAP Note Subjective:: Patient is a pleasant 60-year-old white female that presents today for follow-up. She had lumbar epidural steroid injection on December 23, 2020. She did not get relief from her epidural steroid injection. Patient is rating her pain today a 10 out of 10. She states that she has followed up with Dr. Cuadra since her epidural injection, the hardware from her lumbar fusion has moved this is causing increasing discomfort in her low back. She is going to have to have revision of her lumbar fusion. At this time she is willing to hold off on any further injective therapy until after her revision. She is not currently prescribed any controlled substances from our office. Her Nir number is [id number] she has an active morphine equivalent of 0. Review of Systems General: No recent weight changes, no fever, no sleep disturbances Respiratory: No cough, no shortness of air, no recurring pulmonary infections Cardiovascular/peripheral vascular: No chest pain, no palpitations, no edema, no shortness of breath Gastrointestinal: No new onset incontinence, normal bowel movements reported Genitourinary: No new onset incontinence Musculoskeletal: Low back pain Psychiatric: [Normal mood/affect] Neurological: [Denies weakness in extremities], [denies balance issues] Objective:: Physical exam General: Alert and oriented x3 no acute distress, pleasant and cooperative, [on room air] Lungs: Respirations even and unlabored, symmetrical chest expansion Eyes: PERRL Musculoskeletal: Flexion and extension of the lumbar spine nonguarded, deep tendon reflexes normal, strength in upper and lower extremities 5 out of 5 normal gait noted Neurological: Speech clear, managed services consultant equal, no gross sensory deficit Assessment:: Degenerative disc disease of the lumbar spine, lumbar radiculopathy Plan:: At this time the patient can follow-up on an as-needed basis. As she will likely require revision of her lumbar fusion with Dr. Cuadra. She is welcome to contact the clinic at any time for follow-up appointment. Dr. Vela has reviewed this note and agrees with this plan of care. This note was dictated using voice recognition software and make contain errors or omissions. [facility] History Medical History: Reports:: Hypertension Denies:: Cancer, Diabetes Mellitus Type 1, Diabetes Mellitus Type 2, Internal Pacemaker, MRSA, Seizures *Have you ever received a pneumonia vaccine?: No *Have you received a flu vaccine this season?: No Other Medical History: Reports: Hypothyroidism, Thyroid Disease. Denies: Blood Transfusion Reaction Laterality Cases: Bilateral: Carpal Tunnel Release Other Surgeries: Yes: No Previous Surgery, Colonoscopy, Other (plate in back/disc surgery). No: Pacemaker Amputation: No Fractures: No - *Social History Smoking Status: Never smoker Tobacco Type: cigarettes Alcohol Intake: never Alcohol Intake Frequency:: holidays/special occasions only Substance Use Type: denies use *Occupational Status:: employed Housing: house Household Members: significant other *Travel in the last 8 weeks: None Family Hx:: Heart Attack
== END ==
PROVIDERS: PCP Pediatrics; Visit Provider Family Medicine
DX: M51.16 Intervertebral disc disorders with radiculopathy, lumbar region (principal)
CPT/HCPCS: 99212; G0463

== ENCOUNTER 2021-07-13 12:32 | Emergency (ER) | payer MEDICARE, SELFPAY ==
[2021-07-13 15:00] VITALS: BP 160/89; PULSE 76; RESP 18; TEMP 36.8; O2SAT 98; BMI 45.3
--- NOTE | 2021-07-13 15:15 | XR_ITS ---
FINAL REPORT CLINICAL HISTORY: C/O LEFT POSTERIOR RIB PAIN THAT WRAPS AROUND AND HURTS ANTERIORLY FINDINGS: LEFT RIBS For views of the left ribs show no fractures. There is no pneumothorax or pleural fluid collection. There is a stimulator device in the midthoracic spine. IMPRESSION: Negative left rib series. No pneumothorax. Reviewed, Interpreted and Dictated by Tomás Kelly MD Transcribed by Manju Jo Authenticated by Tomás Kelly MD on 07/13/2021 04:25:53 PM [facility]
--- NOTE | 2021-07-13 15:31 | HMH.EDUTC ---
[facility] [place] Disposition Clinical Impression: Rib pain on left side Disposition: Home, Self-Care Condition on Discharge: Good Instructions: DI for Chronic Pain -- Adult, Naproxen Additional Instructions: *Not additional anti-inflammatory like Ibuprofen, motrin, aleve, advil with Naproxen. You can still take Tylenol every 4 hours as needed if you need something else for pain *Ice 20 minutes every 2 hours for the first 48 hours after the initial injury followed by moist heat every 20 minutes 3-4 times a day to affected area Over the counter Lidocaine pain patch may help. *Keep this area active, no movement leads to more stiffness, However take it easy and avoid heavy lifting pushing or pulling *Follow up with you family doctor if no improvement for further treatment Continued taking prescribed antibiotics as prescribed Return if needed Straight to ER if any life threatening symptoms Prescriptions: Naproxen [Naproxen 500mg tab] 500 mg PO BID PRN #10 tab PRN Reason: Moderate Pain Transmission Status: Pending to [id number] Referrals: Ward Dow MD [Primary Care Provider] - As needed Time of Disposition: 16:02 Medical Decision Making - Nir Inquiry Pt receiving controlled substance: No Nir was queried for this patient: No Vital Signs: 07/13/21 15:00 Temperature 98.3 F Temperature Source Oral Pulse Rate [Right Brachial] 76 Respiratory Rate 18 Blood Pressure [Right Arm] 160/89 H Blood Pressure Mean [Right Arm] 112 Blood Pressure Source [Right Arm] Automatic Cuff Blood Pressure Position [Right Arm] Sitting 02 Sat by Pulse Oximetry 98 Oxygen Delivery Method Room Air Orders (Tests/Meds): ED MEDICATIONS Discontinued Medications Generic Name Dose Route Start Last Admin Trade Name Freq PRN Reason Stop Dose Admin Methylprednisolone Sodium Succinate 125 mg 07/13/21 15:57 Methylprednisolone Sod Succ 125mg Vial IM 07/13/21 15:58 ONCE ONE ORDERS Category Date Time Status XR ribs LT min 3V w CXR1V Stat Exams 07/13/21 15:15 Taken - Radiology Data #1 Image(s): Chest (with left ribs) Image Reviewed: Yes I reviewed the patient's radiology image w/the ED provider Preliminary Findings: No Fracture Seen no acute finding [facility] [place] HPI - General Stated complaint: upper back pain Time Seen by Provider: 07/13/21 15:31 Mode of Arrival: Ambulatory Source of Information: Patient Limitations: No Limitations Description of Symptoms (Recalled from Triage Doc. by RN): PATIENT C/O UPPER BACK AND LEFT RIB PAIN SINCE THIS MORNING HEENT Symptoms (Recalled from RN notes): No Resp Symptoms (Recalled from RN notes): No Skin Symptoms (Recalled from RN notes): No MS Symptoms (Recalled from RN notes): Yes Functional Status (Recalled from RN notes): WNL - History of Present Illness Provider Complaint: Patient states that she was seen and treated for Bronchitis a week or so ago States that she has still been having pressure like feeling in her ears and this morning she started having pain in her right ribs area States that she hasnt been coughing and not sure if she may have turned wrong or something and pulled something but she came in to get checked - Related Data Home Medications Medication Instructions Recorded Confirmed levothyroxine 88 mcg tablet 88 mcg PO DAILY tab 06/20/21 07/13/21 Previous Rx's Medication Instructions Recorded Naproxen [Naproxen 500mg tab] 500 mg PO BID PRN #10 tab 07/13/21 Allergies Allergy/AdvReac Type Severity Reaction Status Date / Time No Known Allergies Allergy Verified 06/20/21 17:23 - Worker's Comp Is this a Worker's Comp case?: No [facility] History - Hepatitis A Screen Drug use history?: No High risk sexual behaviors?: No History of sexually transmitted infection?: No Currently employed?: No Childcare worker?: No Do you have indoor plumbing?: Yes Do you have electricity?: Yes Attestation statement:: This patient has b
[2021-07-13 16:10] VITALS: BP 160/89; PULSE 76; RESP 18; TEMP 36.8; O2SAT 98
== END 2021-07-13 16:17 | disposition home or self-care (01) ==
PROVIDERS: Emergency Provider Nurse Practitioner; PCP Pediatrics
DX: R07.89 Other chest pain (principal); I10 Essential (primary) hypertension
CPT/HCPCS: G0463; 71101; 96372; 99202

== ENCOUNTER 2021-07-16 16:30 | Emergency (ER) | payer MEDICARE, SELFPAY ==
[2021-07-16] VITALS (7 sets, daily range): BP systolic 145–170; BP diastolic 80–95; PULSE 68–77; RESP 13–18; TEMP 36.6; O2SAT 96–99; BMI 39.9
--- NOTE | 2021-07-16 16:32 | ECG_ITS ---
APPROVED REPORT Exam: Resting ECG HR:82 bpm ECG Measurements Heart Rate 82 AXES DE 152 P 53 QRSd 90 QRS 35 QT 338 T 61 QTc 377 Conclusion SINUS RHYTHM NORMAL ECG UNCONFIRMED REPORT Electronically signed by : Beau Barragan MD 07/17/2021 17:27:20
--- NOTE | 2021-07-16 17:08 | XR_ITS ---
PROCEDURE INFORMATION: Exam: XR Chest Exam date and time: 07/16/2021 5:08 PM Age: 61 years old Clinical indication: Left-sided; Patient HX: Left sided chest pain, light headed TECHNIQUE: Imaging protocol: XR of the chest. Views: 1 view. Total images: 1 COMPARISON: CR XR RIBS LT MIN 3V W CXR1V 07/13/2021 3:19 PM FINDINGS: Tubes, catheters and devices: Spinal stimulator unchanged without gross complication. Lungs: Pulmonary vasculature grossly normal. Small rounded zone of alveolar density projecting over the central left base near the left heart border which is new since prior exam. This could represent developing pneumonia. Pleural spaces: Slightly blunted left lateral costophrenic angle may be due to minimal effusion or basilar atelectasis. No pneumothorax. Heart/Mediastinum: Heart size normal. No tracheal/mediastinal shift. Vasculature: Mild aortic ectasia/tortuosity. Mild-moderate aortic ectasia/tortuosity. Bones/joints: No gross osseous abnormalities are identified. IMPRESSION: 1. New alveolar density in the central left base could represent developing pneumonia versus atelectasis. 2. Slightly blunted left lateral costophrenic angle which may be due to atelectasis or minimal basilar effusion.
--- NOTE | 2021-07-16 17:20 | PC.NURSE ---
Radiology at bedside for x-ray.
[2021-07-16 17:40] LABS: Basophils # 0.2 K/mm3 (0-0.2); Basophils % 1.2 % (0.1-2.0); Eosinophils # 0.4 K/mm3 (0.0-0.4); Eosinophils % 2.3 % (0.1-12.0); Hematocrit 46.6 % (37.0-47.0); Hemoglobin 14.8 g/dL (12.2-16.2); Lymphocytes # 4.1 K/mm3 (0.7-4.5); Lymphocytes % 25.3 % (10-50); Mean Corpuscular HGB Conc 31.7 g/dL (31.8-35.4); Mean Corpuscular Hemoglobin 30.4 pg (27.0-31.2); Mean Corpuscular Volume 95.9 fl (81-99); Mean Platelet Volume 9.3 fl (7.4-10.4); Monocytes # 1.1 K/mm3 (0.1-1.0); Monocytes % 7.1 % (1.7-9.3); Neutrophils # 10.3 K/mm3 (1.8-7.8); Neutrophils % 64.1 % (37.0-80.0); Platelet Count 341 K/mm3 (142-424); Red Blood Count 4.86 M/mm3 (4.20-5.40); Red Cell Distribution Width 13.3 % (11.5-17.5); White Blood Count 16.1 K/mm3 (4.8-10.8)
[2021-07-16 17:41] LABS: MANUAL DIFFERENTIAL MANUAL DIFFERENTIAL (MANUAL DIFF)
[2021-07-16 17:45] LABS: Alanine Aminotransferase 34 U/L (12-78); Albumin Level 4.6 g/dl (3.5-5.0); Albumin/Globulin Ratio 1.4 (1.1-1.8); Alkaline Phosphatase 78 U/L (38-126); Anion Gap 10.9 mEq/L (5-15); Aspartate Amino Transferase 36 U/L (14-36); Bilirubin,Total 0.5 mg/dl (0.2-1.3); Blood Urea Nitrogen 20 mg/dl (7-17); Calcium 9.5 mg/dl (8.4-10.2); Carbon Dioxide 30 mmol/L (22.0-30.0); Chloride 103 mmol/L (98-107); Creatinine Clearance Estimated 114 mL/min (50-200); Estimated Glomerular Filt Rate 64 ml/min (>60); GFR (African American) 77 ML/MIN (>60); Globulin 3.3 g/dL (1.3-3.2); Glucose 93 mg/dl (74-100); Potassium 3.9 mmoL/L (3.5-5.1); Sodium 140 mmol/L (136-145); Total Protein,Serum 7.9 g/dl (6.3-8.2)
[2021-07-16 17:50] LABS: D-Dimer 0.48 ug/mL (0.0-0.5)
[2021-07-16 18:28] LABS: Eosinophils % 3 % (0-3); Lymphocytes % 22 % (10-50); Monocytes % 8 % (2-9); Neutrophils % 67 % (42-76); Platelet Estimate Normal; RBC Morphology Normal; Total Cells Counted 100
[2021-07-16 18:30] LABS: Troponin I < 0.01 ng/ml (0.00-0.034)
[2021-07-16 19:14] LABS: Troponin I < 0.01 ng/ml (0.00-0.034)
--- NOTE | 2021-07-16 19:39 | HMH.EDGENADL ---
ED Disposition Clinical Impression: Musculoskeletal chest pain Disposition: Home, Self-Care Condition on Discharge: Good Instructions: DI for Atypical Chest Pain Additional Instructions: Please continue Tylenol and ibuprofen every 6 hours for the next 3 to 5 days. You may also take the muscle relaxers previously prescribed to you. You may additionally use heat on the area of pain or lidocaine patches that you can get [id number]. Continue to monitor symptoms with the development of fever, productive cough or other systemic symptoms. If your condition worsens or other concerns arise, please return to the emergency department. Otherwise, please see your primary care physician next week for reassessment. Referrals: Ward Dow MD [Primary Care Provider] - - Critical Care Critical Care Time: No Attestation: On 07/16/21, the high probability of a clinically significant, sudden or life threatening deterioration of the following system(s) required my full and direct attention, intervention and personal management. The time I documented below is in addition to time spent performing reported procedures but includes the following listed in this critical care notation. Medical Decision Making - Medical Records Medical records reviewed: Yes: I reviewed the patient's medical records. - Nir Inquiry Pt receiving controlled substance: No Vital Signs: 07/16/21 16:44 07/16/21 16:45 07/16/21 17:00 Temperature 98 F Temperature Source Oral Pulse Rate 73 68 Pulse Rate [Radial] 75 Respiratory Rate 18 15 15 Blood Pressure 170/95 H 161/93 H Blood Pressure [Right Arm] 161/93 H Blood Pressure Mean [Right Arm] 115 Blood Pressure Position [Right Arm] Sitting 02 Sat by Pulse Oximetry 98 97 99 Oxygen Delivery Method Room Air 07/16/21 17:30 07/16/21 18:00 07/16/21 18:31 Temperature Temperature Source Pulse Rate 70 68 77 Pulse Rate [Radial] Respiratory Rate 14 13 17 Blood Pressure 162/88 H 158/91 H 145/80 H Blood Pressure [Right Arm] Blood Pressure Mean [Right Arm] Blood Pressure Position [Right Arm] 02 Sat by Pulse Oximetry 96 97 97 Oxygen Delivery Method 07/16/21 19:54 Temperature 98 F Temperature Source Oral Pulse Rate 69 Pulse Rate [Radial] Respiratory Rate 15 Blood Pressure 157/92 H Blood Pressure [Right Arm] Blood Pressure Mean [Right Arm] Blood Pressure Position [Right Arm] 02 Sat by Pulse Oximetry Oxygen Delivery Method Room Air - Lab Data Lab results reviewed: Yes: I reviewed the patient's lab results. Lab Results 07/16/21 16:46: WBC 16.1 H, RBC 4.86, Hgb 14.8, Hct 46.6, MCV 95.9, MCH 30.4, MCHC 31.7 L, RDW 13.3, Plt Count 341, MPV 9.3, Neut % (Auto) 64.1, Lymph % (Auto) 25.3, [place] % (Auto) 7.1, Eos % (Auto) 2.3, Baso % (Auto) 1.2, Neut # (Auto) 10.3 H, Lymph # (Auto) 4.1, [place] # (Auto) 1.1 H, Eos # (Auto) 0.4, Baso # (Auto) 0.2, Total Counted 100, Neutrophils % (Manual) 67, Lymphocytes % (Manual) 22, Monocytes % (Manual) 8, Eosinophils % (Manual) 3, Platelet Estimate Normal, RBC Morphology Normal 07/16/21 16:46: D-Dimer 0.48 07/16/21 16:46: Sodium 140, Potassium 3.9, Chloride 103, Carbon Dioxide 30, Anion Gap 10.9, BUN 20 H, Creatinine 0.90, Estimated Creat Clear 114, Estimated GFR 64, Est GFR ( Amer) 77, Glucose 93, Calcium 9.5, Total Bilirubin 0.5, AST 36, ALT 34, Alkaline Phosphatase 78, Troponin I < 0.01, Total Protein 7.9, Albumin 4.6, Globulin 3.3 H, Albumin/Globulin Ratio 1.4 07/16/21 18:40: Troponin I < 0.01 Result diagrams: 07/16/21 16:46 07/16/21 16:46 Orders (Tests/Meds): ED MEDICATIONS Discontinued Medications Generic Name Dose Route Start Last Admin Trade Name Jean-Claude PRN Reason Stop Dose Admin Acetaminophen 1,000 mg 07/16/21 17:09 07/16/21 17:47 Acetaminophen 500mg Tab PO 07/16/21 17:10 1,000 mg ONCE ONE Administration Aspirin 324 mg 07/16/21 16:47 07/16/21 16:48 Aspirin 81mg Chewable Tablet PO
== END 2021-07-16 19:57 | disposition home or self-care (01) ==
PROVIDERS: Emergency Provider Emergency Medicine; PCP Pediatrics
DX: R07.89 Other chest pain (principal); I10 Essential (primary) hypertension; E03.9 Hypothyroidism, unspecified
CPT/HCPCS: 71045; 80053; 84484; 85007; 85025; 85378; 93005; 96376; 99282; J2405

== ENCOUNTER 2021-07-26 11:17 | Emergency (ER) | payer MEDICARE, SELFPAY ==
[2021-07-26 11:29] VITALS: BP 180/95; PULSE 87; RESP 18; TEMP 37; O2SAT 97; BMI 38.7
--- NOTE | 2021-07-26 11:51 | HMH.EDUTC ---
[facility] [place] Disposition Condition on Discharge: Good <AdrianaCurtis - Last Filed: 07/26/21 19:23> Condition on Discharge: Good <Joan Larios - Last Filed: 07/26/21 20:58> Clinical Impression: Pituitary mass Pain in head Qualifiers: Headache type: unspecified Headache chronicity pattern: unspecified pattern Intractability: not intractable Qualified Code(s): R51.9 - Headache, unspecified Disposition: Home, Self-Care Instructions: DI for Headache Additional Instructions: follow up with neurosurgery, they are going to call you for an appt. Prescriptions: Hydrocodone/Acetaminophen [Hydrocodone-Acetamin 7.5-325] 1 tab PO TID PRN #10 tab PRN Reason: Moderate To Severe Pain Transmission Status: Received by [id number] Referrals: Ward Dow MD [Primary Care Provider] - Medical Decision Making - Medical Records Medical records reviewed: Yes: I reviewed the patient's medical records. - Nir Inquiry Pt receiving controlled substance: No - Lab Data Result diagrams: 07/26/21 12:11 07/26/21 12:11 <AdrianaCurtis - Last Filed: 07/26/21 19:23> - Nir Inquiry Pt receiving controlled substance: No Nir was queried for this patient: No - Lab Data Result diagrams: 07/26/21 12:11 07/26/21 12:11 <RicJoan Navarrete - Last Filed: 07/26/21 20:58> Vital Signs: 07/26/21 11:29 07/26/21 12:42 07/26/21 13:01 Temperature 98.6 F 97.5 F L Temperature Source Oral Oral Pulse Rate 68 Pulse Rate [Left] 87 79 Respiratory Rate 18 18 18 Blood Pressure 150/86 H Blood Pressure [Right Arm] 180/95 H 167/93 H Blood Pressure Mean 115 Blood Pressure Mean [Right Arm] 123 117 Blood Pressure Source Blood Pressure Source [Right Arm] Automatic Cuff Blood Pressure Position Blood Pressure Position [Right Arm] Sitting 02 Sat by Pulse Oximetry 97 98 98 Oxygen Delivery Method Room Air 07/26/21 13:31 07/26/21 15:09 Temperature 97.5 F L Temperature Source Oral Pulse Rate 72 73 Pulse Rate [Left] Respiratory Rate 18 18 Blood Pressure 132/74 156/83 H Blood Pressure [Right Arm] Blood Pressure Mean 93 Blood Pressure Mean [Right Arm] Blood Pressure Source Automatic Cuff Blood Pressure Source [Right Arm] Blood Pressure Position Sitting Blood Pressure Position [Right Arm] 02 Sat by Pulse Oximetry 98 Oxygen Delivery Method Room Air - Lab Data Lab Results 07/26/21 12:11: WBC 9.7, RBC 4.44, Hgb 13.4, Hct 43.0, MCV 97.0, MCH 30.3, MCHC 31.2 L, RDW 13.7, Plt Count 280, MPV 8.7, Neut % (Auto) 67.4, Lymph % (Auto) 25.1, [place] % (Auto) 4.7, Eos % (Auto) 2.1, Baso % (Auto) 0.8, Neut # (Auto) 6.5, Lymph # (Auto) 2.4, [place] # (Auto) 0.5, Eos # (Auto) 0.2, Baso # (Auto) 0.1 07/26/21 12:11: Sodium 136, Potassium 4.0, Chloride 102, Carbon Dioxide 27, Anion Gap 11.0, BUN 14, Creatinine 0.90, Estimated Creat Clear 114, Estimated GFR 64, Est GFR ( Amer) 77, Glucose 95, Calcium 8.5, Total Bilirubin 0.5, AST 27, ALT 25, Alkaline Phosphatase 83, Troponin I < 0.01, Total Protein 7.7, Albumin 4.4, Globulin 3.3 H, Albumin/Globulin Ratio 1.3 07/26/21 12:11: TSH 3.18 Orders (Tests/Meds): ED MEDICATIONS Discontinued Medications Generic Name Dose Route Start Last Admin Trade Name Jean-Claude PRN Reason Stop Dose Admin Dexamethasone Sodium Phosphate 8 mg 07/26/21 14:31 07/26/21 15:08 Dexamethasone 4mg/Ml 1ml Vial IV 07/26/21 14:32 8 mg ONCE ONE Administration Gabapentin 300 mg 07/26/21 14:31 07/26/21 15:08 Gabapentin 300mg Capsule PO 07/26/21 14:32 300 mg ONCE ONE Administration Ketorolac Tromethamine 15 mg 07/26/21 12:35 07/26/21 13:00 Ketorolac 30mg/Ml Vial IV 07/26/21 12:36 15 mg ONCE ONE Administration Metoclopramide HCl 5 mg 07/26/21 12:36 07/26/21 13:00 Metoclopramide Hcl 10mg/2ml Vial IVP 07/26/21 12:37 5 mg ONCE ONE Administration Oxycodone/Acetaminophen 1 each 07/26/21 12:36 07/26/21 13:00 Oxycodone 5mg W/Apap 325mg
--- NOTE | 2021-07-26 12:04 | CT_ITS ---
FINAL REPORT CLINICAL HISTORY: right temporal pain with headache FINDINGS: Axial images of the head were obtained without contrast. Coronal reformatted images were also obtained.This study was performed with techniques to keep radiation doses as low as reasonably achievable (ALARA). Individualized dose reduction techniques using automated exposure control or adjustment of mA and/or kV according to the patient''s size were employed. There is abnormal soft tissue in the sella measuring 13 mm in height most worrisome for a pituitary neoplasm. The ventricular size is within normal limits. There is no evidence of shift of the midline structures. No abnormal extra axial fluid collection is identified. No skull abnormality is seen on the bone window images. IMPRESSION: Findings most worrisome for pituitary neoplasm. Recommend pituitary mass protocol MRI with and without contrast to further evaluate. Reviewed, Interpreted and Dictated by Ruben Rosales III, MD Transcribed by Kelley Castro Authenticated by Ruben Rosales III, MD on 07/26/2021 01:26:42 PM [facility]
--- NOTE | 2021-07-26 12:32 | HMH.EDGENADL ---
ED Disposition Clinical Impression: Pituitary mass Headache Qualifiers: Headache type: unspecified Headache chronicity pattern: unspecified pattern Intractability: not intractable Qualified Code(s): R51.9 - Headache, unspecified Disposition: Home, Self-Care Condition on Discharge: Good Instructions: DI for Headache Prescriptions: Hydrocodone/Acetaminophen [Hydrocodone-Acetamin 7.5-325] 1 tab PO TID PRN #10 tab PRN Reason: Moderate To Severe Pain Transmission Status: Sent to [facility] Referrals: Ward Dow MD [Primary Care Provider] - - Critical Care Critical Care Time: No Attestation: On 07/26/21, the high probability of a clinically significant, sudden or life threatening deterioration of the following system(s) required my full and direct attention, intervention and personal management. The time I documented below is in addition to time spent performing reported procedures but includes the following listed in this critical care notation. Medical Decision Making - Medical Records Medical records reviewed: Yes: I reviewed the patient's medical records. - Nir Inquiry Pt receiving controlled substance: No Vital Signs: 07/26/21 11:29 07/26/21 12:42 07/26/21 13:01 Temperature 98.6 F 97.5 F L Temperature Source Oral Oral Pulse Rate 68 Pulse Rate [Left] 87 79 Respiratory Rate 18 18 18 Blood Pressure 150/86 H Blood Pressure [Right Arm] 180/95 H 167/93 H Blood Pressure Mean 115 Blood Pressure Mean [Right Arm] 123 117 Blood Pressure Source [Right Arm] Automatic Cuff Blood Pressure Position [Right Arm] Sitting 02 Sat by Pulse Oximetry 97 98 98 Oxygen Delivery Method Room Air 07/26/21 13:31 Temperature Temperature Source Pulse Rate 72 Pulse Rate [Left] Respiratory Rate 18 Blood Pressure 132/74 Blood Pressure [Right Arm] Blood Pressure Mean 93 Blood Pressure Mean [Right Arm] Blood Pressure Source [Right Arm] Blood Pressure Position [Right Arm] 02 Sat by Pulse Oximetry 98 Oxygen Delivery Method - Lab Data Lab Results 07/26/21 12:11: WBC 9.7, RBC 4.44, Hgb 13.4, Hct 43.0, MCV 97.0, MCH 30.3, MCHC 31.2 L, RDW 13.7, Plt Count 280, MPV 8.7, Neut % (Auto) 67.4, Lymph % (Auto) 25.1, [place] % (Auto) 4.7, Eos % (Auto) 2.1, Baso % (Auto) 0.8, Neut # (Auto) 6.5, Lymph # (Auto) 2.4, [place] # (Auto) 0.5, Eos # (Auto) 0.2, Baso # (Auto) 0.1 07/26/21 12:11: Sodium 136, Potassium 4.0, Chloride 102, Carbon Dioxide 27, Anion Gap 11.0, BUN 14, Creatinine 0.90, Estimated Creat Clear 114, Estimated GFR 64, Est GFR ( Amer) 77, Glucose 95, Calcium 8.5, Total Bilirubin 0.5, AST 27, ALT 25, Alkaline Phosphatase 83, Troponin I < 0.01, Total Protein 7.7, Albumin 4.4, Globulin 3.3 H, Albumin/Globulin Ratio 1.3 Result diagrams: 07/26/21 12:11 07/26/21 12:11 Orders (Tests/Meds): ED MEDICATIONS Discontinued Medications Generic Name Dose Route Start Last Admin Trade Name Jean-Claude PRN Reason Stop Dose Admin Ketorolac Tromethamine 15 mg 07/26/21 12:35 07/26/21 13:00 Ketorolac 30mg/Ml Vial IV 07/26/21 12:36 15 mg ONCE ONE Administration Metoclopramide HCl 5 mg 07/26/21 12:36 07/26/21 13:00 Metoclopramide Hcl 10mg/2ml Vial IVP 07/26/21 12:37 5 mg ONCE ONE Administration Oxycodone/Acetaminophen 1 each 07/26/21 12:36 07/26/21 13:00 Oxycodone 5mg W/Apap 325mg Tablet PO 07/26/21 12:37 1 each ONCE ONE Administration ORDERS Category Date Time Status TSH [Thyroid Stimulating Hormone] Stat Lab 07/26/21 14:28 Ordered Medical Decision Narrative: reeval, still with intermittent mod pain discussed with Dr Ochoa UAlejandra neurosurg ok with plna to rx and f/u outpt, pt agreed General Adult HPI - General 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 by RN): pt c/o a
--- NOTE | 2021-07-26 12:35 | ECG_ITS ---
APPROVED REPORT Exam: Resting ECG HR:73 bpm ECG Measurements Heart Rate 73 AXES CO 158 P 60 QRSd 92 QRS 43 QT 375 T 10 QTc 400 Conclusion SINUS RHYTHM LOW QRS VOLTAGE IN PRECORDIAL LEADS [QRS DEFLECTION < 1.0 mV IN CHEST LEADS] BORDERLINE ECG UNCONFIRMED REPORT Electronically signed by : Beau Barragan MD 07/27/2021 18:50:41
[2021-07-26 12:36] LABS: Basophils # 0.1 K/mm3 (0-0.2); Basophils % 0.8 % (0.1-2.0); Eosinophils # 0.2 K/mm3 (0.0-0.4); Eosinophils % 2.1 % (0.1-12.0); Hemoglobin 13.4 g/dL (12.2-16.2); Lymphocytes # 2.4 K/mm3 (0.7-4.5); Lymphocytes % 25.1 % (10-50); Mean Corpuscular HGB Conc 31.2 g/dL (31.8-35.4); Mean Corpuscular Hemoglobin 30.3 pg (27.0-31.2); Mean Platelet Volume 8.7 fl (7.4-10.4); Monocytes # 0.5 K/mm3 (0.1-1.0); Monocytes % 4.7 % (1.7-9.3); Neutrophils # 6.5 K/mm3 (1.8-7.8); Neutrophils % 67.4 % (37.0-80.0); Platelet Count 280 K/mm3 (142-424); Red Blood Count 4.44 M/mm3 (4.20-5.40); Red Cell Distribution Width 13.7 % (11.5-17.5); White Blood Count 9.7 K/mm3 (4.8-10.8)
[2021-07-26 12:37] LABS: Chloride 102 mmol/L (98-107)
[2021-07-26 12:38] LABS: Sodium 136 mmol/L (136-145)
[2021-07-26 12:40] LABS: Blood Urea Nitrogen 14 mg/dl (7-17); Creatinine Clearance Estimated 114 mL/min (50-200); Estimated Glomerular Filt Rate 64 ml/min (>60); GFR (African American) 77 ML/MIN (>60)
[2021-07-26 12:41] LABS: Alanine Aminotransferase 25 U/L (12-78); Albumin Level 4.4 g/dl (3.5-5.0); Albumin/Globulin Ratio 1.3 (1.1-1.8); Alkaline Phosphatase 83 U/L (38-126); Aspartate Amino Transferase 27 U/L (14-36); Bilirubin,Total 0.5 mg/dl (0.2-1.3); Calcium 8.5 mg/dl (8.4-10.2); Carbon Dioxide 27 mmol/L (22.0-30.0); Globulin 3.3 g/dL (1.3-3.2); Glucose 95 mg/dl (74-100); Total Protein,Serum 7.7 g/dl (6.3-8.2)
[2021-07-26 12:42] VITALS: BP 167/93; PULSE 79; RESP 18; TEMP 36.4; O2SAT 98; BMI 38.5
[2021-07-26 13:01] VITALS: BP 150/86; PULSE 68; RESP 18; O2SAT 98
[2021-07-26 13:31] VITALS: BP 132/74; PULSE 72; RESP 18; O2SAT 98
[2021-07-26 13:32] LABS: Troponin I < 0.01 ng/ml (0.00-0.034)
--- NOTE | 2021-07-26 13:56 | PC.NURSE ---
PT STATES PAIN IS NOT MUCH BETTER
--- NOTE | 2021-07-26 13:59 | PC.NURSE ---
ER in room speaking with pt r/t Ct scan results
--- NOTE | 2021-07-26 14:07 | PC.NURSE ---
contacting [facility]
--- NOTE | 2021-07-26 14:16 | PC.NURSE ---
waiting systems management consultant back from [facility]
--- NOTE | 2021-07-26 15:08 | PC.NURSE ---
contacted radiology for a disc of images for pt
[2021-07-26 15:09] VITALS: BP 156/83; PULSE 73; RESP 18; TEMP 36.4; O2SAT 97
[2021-07-26 15:13] LABS: Thyroid Stimulating Hormone 3.18 uIU/mL (0.465-4.68)
== END 2021-07-26 15:09 | disposition home or self-care (01) ==
LOC: UTC 11:25 → ER 12:01 → UTC 12:01 → ER 12:28
PROVIDERS: Emergency Medicine; Emergency Provider Nurse Practitioner; PCP Pediatrics
DX: E23.6 Other disorders of pituitary gland (principal); E03.9 Hypothyroidism, unspecified; I10 Essential (primary) hypertension; Z79.899 Other long term (current) drug therapy
CPT/HCPCS: 70450; 80053; 84443; 84484; 85025; 93005; 96374; 96375; 99282

== ENCOUNTER → 2021-09-19 08:53 | Outpatient (CLI) | payer MEDICARE, SELFPAY ==
[2021-09-19 09:46] LABS: Blood Urea Nitrogen 14 mg/dl (7-17); Estimated Glomerular Filt Rate 73 ml/min (>60); GFR (African American) 89 ML/MIN (>60)
== END ==
PROVIDERS: PCP Pediatrics; Visit Provider Otolaryngology
DX: I88.9 Nonspecific lymphadenitis, unspecified (principal)
CPT/HCPCS: 36415; 82565; 84520

== ENCOUNTER → 2021-09-28 12:29 | Outpatient (CLI) | payer MEDICARE, SELFPAY ==
--- NOTE | 2021-09-28 12:29 | CT_ITS ---
FINAL REPORT TECHNIQUE: Thin section axial CT images with coronal and sagittal reformats were performed after the administration of IV contrast. This study was performed with techniques to keep radiation doses as low as reasonably achievable (ALARA). Individualized dose reduction techniques using automated exposure control or adjustment of mA and/or kV according to the patient''s size were employed. CLINICAL HISTORY: left lymph node swelling neck X 3 MOS FINDINGS: Salivary glands are normal. Larynx is unremarkable. Thyroid gland is unremarkable. The cervical vasculature is well opacified. The carotid bifurcations are patent. There are small lymph nodes seen in the cervical regions bilaterally. Individual lymph nodes measure up to 1.3 cm on the left. No separate masses are seen. The parotid glands are unremarkable. IMPRESSION: Small bilateral cervical lymph nodes measuring up to 1.3 cm the left. Reviewed, Interpreted and Dictated by Tomás Kelly MD Transcribed by Manju Jo Authenticated by Tomás Kelly MD on 09/28/2021 02:21:01 PM [facility]
== END ==
PROVIDERS: PCP Pediatrics; Visit Provider Otolaryngology
DX: I88.9 Nonspecific lymphadenitis, unspecified (principal)
CPT/HCPCS: 70491; Q9967

== ENCOUNTER → 2021-12-20 07:30 | Outpatient (CLI) | payer MEDICARE, SELFPAY | PROVIDERS: PCP Pediatrics; Visit Provider Internal Medicine | DX: D35.2 Benign neoplasm of pituitary gland (principal) | CPT/HCPCS: 36415; 82533 ==

== ENCOUNTER 2021-12-23 07:59 | Emergency (ER) | payer MEDICARE, SELFPAY ==
[2021-12-23 08:05] VITALS: BP 153/73; PULSE 66; RESP 19; TEMP 36.7; O2SAT 96; BMI 40.7
--- NOTE | 2021-12-23 08:18 | HMH.EDUTC ---
[facility] [place] Disposition Clinical Impression: Wound dehiscence Disposition: Home, Self-Care Condition on Discharge: Good Instructions: DI for Wound Dehiscence Additional Instructions: Keep clean and dry. Clean gently, rinse gently, pat dry. Monitor for signs of infection Prescriptions: cephALEXin [Cephalexin 500mg Tab] 500 mg PO TID 10 Days #30 tab Transmission Status: Pending to [facility] Referrals: Ward Krishna [Primary Care Provider] - Time of Disposition: 08:32 Medical Decision Making - Nir Inquiry Pt receiving controlled substance: No [facility] [place] HPI - General Stated complaint: wound back right side Time Seen by Provider: 12/23/21 08:18 - History of Present Illness Provider Complaint: Patient had spinal cord stimulator removed on 11/15/2021. Had georgiana removed on 11/29/2021. Incision on right flank had scab at lower end. Yesterday she spent a few hours at the dentist and when she got home the area was burning. Due to its loation she cannot visualize it well, but noted the scab was gone and the area was open a bit. Onset (ago): day(s) (1) Location: back Radiation: non-radiation Severity: mild Consistency: constant Relieving factors: none Exacerbating factors: none Associated symptoms: denies other symptoms Treatments prior to arrival: none - Related Data Home Medications Medication Instructions Recorded Confirmed levothyroxine 88 mcg tablet 88 mcg PO DAILY tab 06/20/21 10/11/21 cabergoline 0.5 mg tablet 0.5 mg PO tab 08/29/21 10/11/21 Amitriptyline HCl [Elavil 10mg 10 mg PO DAILY 12/23/21 12/23/21 tablet] Previous Rx's Medication Instructions Recorded cephALEXin [Cephalexin 500mg Tab] 500 mg PO TID 10 Days #30 tab 12/23/21 Allergies Allergy/AdvReac Type Severity Reaction Status Date / Time No Known Allergies Allergy Verified 10/11/21 13:21 [facility] History - Hepatitis A Screen Attestation statement:: This patient has been screened for Hepatitis A risk factors. I have reviewed the patient's past medical history: Yes Medical History: Reports:: Hypertension Denies:: Cancer, Diabetes Mellitus Type 1, Diabetes Mellitus Type 2, Internal Pacemaker, MRSA, Seizures Other Medical History: Reports: Hypothyroidism, Thyroid Disease. Denies: Blood Transfusion Reaction Laterality Cases: Bilateral: Arthroscopy Knee, Carpal Tunnel Release Other Surgeries: Yes: No Previous Surgery, Colonoscopy, Other (plate in back/disc surgery). No: Pacemaker Amputation: No Fractures: No - Social History Smoking Status: Never smoker Tobacco Type: cigarettes Alcohol Intake: never Alcohol Intake Frequency:: holidays/special occasions only Substance Use Type: denies use Occupational Status: employed Housing: house Household Members: significant other Family Hx:: Heart Attack ROS Obtained: Yes All systems reviewed & no additional complaints - Integumentary/Breasts Skin/Breast: Reports as per HPI Physical Exam - General General appearance: alert, in no apparent distress - Head Head exam: normocephalic - Eye Eye exam: Present: PERRL - Chest Chest inspection: Present: normal inspection - Respiratory Respiratory exam: Present: normal lung sounds bilaterally - Cardiovascular Cardiovascular exam: Present: regular rate, normal rhythm - Extremities Exam Extremities exam: Present: normal inspection, full ROM - Back Exam Back exam: Present: other (incision right flank - lower 2.5 cm gapped with granulation tissue) - Neurological Exam Neurological exam: Present: alert, oriented X3 - Psychiatric Psychiatric exam: Present: normal affect, normal mood - Skin Skin exam: Present: warm, dry, intact
[2021-12-23 08:39] VITALS: BP 153/73; PULSE 66; RESP 19; TEMP 36.7; O2SAT 96
== END 2021-12-23 08:41 | disposition home or self-care (01) ==
PROVIDERS: Emergency Provider Physician Assistant; PCP Pediatrics
DX: T81.31XA Disruption of external operation (surgical) wound, not elsewhere classified, initial encounter (principal); I10 Essential (primary) hypertension
CPT/HCPCS: 99212; G0463

== ENCOUNTER 2022-09-30 08:34 | Emergency (ER) | payer MEDICARE, SELFPAY ==
[2022-09-30 08:45] VITALS: BP 164/89; PULSE 89; RESP 20; TEMP 36.7; O2SAT 97; BMI 43.2
--- NOTE | 2022-09-30 09:01 | EXP.UTC ---
Discharge Plan Disposition Patient Disposition: Home, Self-Care Condition: Good Prescriptions Prescriptions: New doxycycline hyclate 100 mg capsule 100 mg PO BID Qty: 20 0RF No Action levothyroxine [Euthyrox] 88 mcg tablet 88 mcg PO DAILY Label Comments: TAKE 1 TABLET BY MOUTH ONCE DAILY, NEED TO MAKE APPOINTMENT FOR REFILLS cabergoline 0.5 mg tablet 0.5 mg PO DAILY Label Comments: TAKE 1/2 (ONE-HALF) TABLET BY MOUTH TWICE A WEEK amitriptyline 10 MG tablet 10 mg PO DAILY Referrals Follow up/Referrals: Ward Dow MD [Primary Care Provider] - See instructions Activity Restrictions/Add. Instructions Additional Instructions/Restrictions: Take medication as prescribed Watch area for worsening of symptoms Follow up with your Family Doctor if no improvement or any worsening of symptoms Return if needed Clinical Impressions Clinical Impression: Tick bite of calf Instructions Patient Instructions: How to Remove a Tick, Protect Yourself from Tickborne Illnesses, Doxycycline Discharge ED Provider: Joan Larios [facility] [place] HPI General Stated complaint: Possible tick bite LT leg Mode of Arrival: Ambulatory Source of Information: Patient Limitations: No Limitations Time Seen by Provider: 09/30/22 09:01 Description of Symptoms (Recalled from Triage Doc. by RN): PATIENT REPORTS PULLING A TICK OFF OF THE BACK OF HER LEFT THIGH ON SATURDAY. SHE THINKS SHE GOT THE TICK LAST WEEK. SHE STATES THE AREA FEELS IRRITATED AND REDNESS IS NOTED TO AREA HEENT Symptoms (Recalled from RN notes): No Resp Symptoms (Recalled from RN notes): No Skin Symptoms (Recalled from RN notes): Yes MS Symptoms (Recalled from RN notes): No Functional Status (Recalled from RN notes): WNL History of Present Illness Provider Complaint: Patient states that she had a tick imbedded in her left leg in the back of her knee States that she was unsure how long it had been there States that she removed it and thinks she got it all she looked at it and appeared like the head is there but now she is having redness around the bite and looks like a line coming from the bite so she came in Related Data Home Medications Medication Instructions Recorded Confirmed levothyroxine 88 mcg tablet 88 mcg PO DAILY THYROID 06/20/21 09/30/22 (Euthyrox) cabergoline 0.5 mg tablet 0.5 mg PO DAILY TUMOR 08/29/21 09/30/22 amitriptyline 10 mg tablet 10 mg PO DAILY Hypertension 12/23/21 09/30/22 Previous Rx's Medication Instructions Recorded doxycycline hyclate 100 mg capsule 100 mg PO BID #20 caps 09/30/22 Allergies Allergy/AdvReac Type Severity Reaction Status Date / Time No Known Allergies Allergy Verified 10/11/21 13:21 Worker's Comp Is this a Worker's Comp case?: No [facility] Disclaimer: The information contained in this section may have been updated after the patient was seen, as this information can be updated by other users. Social History Smoking Status: Never smoker alcohol intake: never substance use type: denies use current occupational status: employed Travel in the last 8 weeks: None household members: significant other housing: house current occupational exposures/hazards: No caffeine: Yes ROS Obtained: Yes All systems reviewed & no additional complaints except as documented and Yes Systems reviewed as appropriate & no additional complaints except as documented Constitutional Constitutional: Reports system reviewed and no additional complaints, except as documented and Reports as per HPI ENT Ears, Nose, Mouth, and Throat: Reports system reviewed and no additional complaints, except as documented and Reports as per HPI Cardiovascular Cardiovascular: Reports system reviewed and no additional complaints, except as documented and Reports as per HPI Respiratory Respiratory: Reports system reviewed and no additional complaints, except as documented and Reports as per HPI Integumen
[2022-09-30 09:03] VITALS: BP 164/89; PULSE 89; RESP 20; TEMP 36.7; O2SAT 97
== END 2022-09-30 09:07 | disposition home or self-care (01) ==
PROVIDERS: Emergency Provider Nurse Practitioner; PCP Pediatrics
DX: S80.862A Insect bite (nonvenomous), left lower leg, initial encounter (principal); W57.XXXA Bitten or stung by nonvenomous insect and other nonvenomous arthropods, initial encounter
CPT/HCPCS: 99212; 99214; G0463

== ENCOUNTER → 2023-04-19 08:32 | Outpatient (CLI) | payer MEDICARE, SELFPAY ==
--- OUTSIDE RECORDS SUMMARY | 2023-04-19 08:37 | XMS_ITS ---
Author Name Unknown Address [address] [place] [address] Phone Organization [facility] , [facility] Address [address] [place] [address] Phone Care Team Providers Care Computer Numerical Control Machinist Name Role Phone Paloma ROWLAND, Ward Russ Unavailable [phone] Khalif ROWLAND, Rusty Christian Unavailable [phone] Reason for Referral Date Encounter Description Provider Reason for Referral 07/12/22 Follow Up Rusty Cuadra MD Referral To Physician 05/17/22 Post Op Rusty Caudra MD Referral To Physician 04/18/22 Post Op Delmar Jo PA-C Referral To Physician 02/01/22 Follow Up Rusty Cuadra MD Referral To Physician 01/18/22 Post Op Rusty Cuadra MD Referral To Physician 01/05/22 Post Op Delmar Jo PA-C Referral To Physician 12/29/21 Post Op Delmar Jo PA-C Referral To Physician 11/23/21 Post Op Rusty Cuadra MD Referral To Physician 09/28/21 Follow Up Rusty Cuadra MD Referral To Physician - see pcp for bp 08/21/21 CARTER Injection Delmar Jo PA-C Referral To Physician - see pcp for bp 08/14/21 CARTER Injection Delmar Jo PA-C Referral To Physician - see pcp for bp 08/07/21 Follow Up Delmar Jo PA-C Referral To Physician - see pcp for bp 06/01/21 Post Op Rusty Cuadra MD Referral To Physician - see pcp for bp 05/03/21 Post Op Delmar Jo PA-C Referral To Physician - see pcp for bp 03/30/21 Follow Up Rusty Cuadra MD Referral To Physician - see pcp for bp
--- OUTSIDE RECORDS SUMMARY | 2023-04-19 08:37 | XMS_ITS | Clinical Summary ---
Author Name Unknown Address [address] [place] [address] [place] [address] Phone Organization [facility] , [facility] Address [address] [place] [address] Phone Care Team Providers Care Hunter Guide Name Role Phone Paloma ROWLAND, Ward Russ Unavailable [phone] Khalif ROWLAND, Rusty Christian Unavailable [phone] Reason for Visit and Chief Complaint The Chief Complaint is: low back pain Problems Includes: Problems addressed during this encounter and other active Problems All Visits Onset Date Resolved Date Provider Condition S tatus History of Back Pain 09/28/2021 Rusty Banks Active Plan of Treatment Patient was seen by myself Delmar Jo PA-C. Patient will follow up with myself and Dr. Cuadra after L-spine MRI as well as an EMG of both lower extremities - Last Documented On 08/27/2022 1:53PM ; [facility] Pending Tests Order Diagnosis Results Due Ordering Jeb mckinnon Radiology - MRI MRI Lumbar Spine 09/10/22 Nestor Jo PA-C Instructions to patient Lose weight Last Documented On 12:51PM ; [facility] Assessments Includes: Assessments from this encounter Findings
--- OUTSIDE RECORDS SUMMARY | 2023-04-19 08:37 | XMS_ITS | Clinical Summary ---
Author Name Unknown Address [address] [place] [address] [place] [address] Phone Organization [facility] , [facility] Address [address] [place] [address] Phone Care Team Providers Care Core Shaper Top Name Role Phone Paloma ROWLAND, Ward Russ Unavailable [phone] Khalif ROWLAND, Rusty Christian Unavailable [phone] Reason for Referral Date Encounter Description Provider Reason for Referral 05/17/22 Post Op Rusty Cuadra MD Referral To Physician Reason for Visit and Chief Complaint The Chief Complaint is: low back pain Problems Includes: Problems addressed during this encounter and other active Problems All Visits Onset Date Resolved Date Provider Condition S tatus History of Back Pain 09/28/2021 Rusty Banks Active Plan of Treatment Pending Tests Order Diagnosis Results Due Ordering P rovider Radiology - CT Scan Lumbar 01/30/21 Raz Cuadra MD Instructions to patient Lose weight Last Documented On 11:02AM ; [facility], [facility] Assessments Includes: Assessments from this encounter Findings L2-L4 decompression and fusion 04/04/2022 - Last Documented On 05/22/2022 4:22PM ; [facility], [facility] Instruct
--- OUTSIDE RECORDS SUMMARY | 2023-04-19 08:37 | XMS_ITS ---
Care Plan - [facility], [facility] Created on: April 19, 2023 Niall Rosemary Anahi : 1960 Sex: Female Author Name Unknown Address [address] [place] [address] [place] [address] Phone Organization [facility] , [facility] Address [address] [place] [address] Phone Care Team Providers Care Transmitter Chief Name Role Phone Paloma ROWLAND, Ward Russ Unavailable [phone] Khalif ROWLAND, Rusty Christian Unavailable [phone]
--- OUTSIDE RECORDS SUMMARY | 2023-04-19 08:37 | XMS_ITS | Clinical Summary ---
Author Name Unknown Address [address] [place] [address] [place] [address] Phone Organization [facility] , [facility] Address [address] [place] [address] Phone Care Team Providers Care Business Affairs Manager Name Role Phone Paloma ROWLAND, Ward Russ Unavailable [phone] Khalif ROWLAND, Rusty Christian Unavailable [phone] Reason for Referral Date Encounter Description Provider Reason for Referral 07/12/22 Follow Up Rusty Cuadra MD Referral To Physician Reason for Visit and Chief Complaint The Chief Complaint is: low back pain Problems Includes: Problems addressed during this encounter and other active Problems All Visits Onset Date Resolved Date Provider Condition S tatus History of Back Pain 09/28/2021 Rusty Banks Active Plan of Treatment Patient was seen by myself Delmar Jo PA-C. Patient will follow up a month repeat lumbar spine x-rays we will try hip injection for her today for the trochanteric bursa. Patient was given a right hip trochanteric bursa injection 4 cc lidocaine Marcaine and 2 cc of betamethasone. Band-Aid applied afterwards. - Last Documented On 07/12/2022 1:43PM ; [facility] Pending Tests Order Diagnosis Results Due Ordering P bradlyvihung Radiology - CT Scan Lumbar 01/30/21 Raz Cuadra MD Instructions to patient Lose weight
--- OUTSIDE RECORDS SUMMARY | 2023-04-19 08:37 | XMS_ITS | Clinical Summary ---
Author Name Unknown Address [address] [place] [address] [place] [address] Phone Organization [facility] Address [address] [address] Phone Care Team Providers Care Fiber Optic Assembler Name Role Phone Paloma ROWLAND, Ward Russ Unavailable [phone] Khalif ROWLAND, Rusty Christian Unavailable [phone] Reason for Visit and Chief Complaint EMG Problems Includes: Problems addressed during this encounter and other active Problems All Visits Onset Date Resolved Date Provider Condition S tatus History of Back Pain 09/28/2021 Rusty Banks Active Plan of Treatment No Plan of Treatment Recorded Assessments Includes: Assessments from this encounter No Assessments Recorded Medical Equipment - Implanted Devices Includes: Current Devices No Medical Equipment Recorded Medications Includes: Medications discussed during this encounter and other current Medications Current Medications (continue as prescribed) Amitriptyline HCl 25 MG Oral Tablet 10/08/2022 Provi hung: Diagnosis: oxyCODONE-Acetaminophen 5-325 MG Oral Tablet Provider: Rusty Cuadra MD Diagnosis:
== END ==
PROVIDERS: Visit Provider Internal Medicine Endocrinology, Diabetes & Metabolism
DX: D35.2 Benign neoplasm of pituitary gland (principal)
CPT/HCPCS: 36415

== ENCOUNTER 2023-08-22 07:43 | Outpatient (CLI) | payer MEDICARE, SELFPAY ==
--- NOTE | 2023-08-22 07:44 | MM_ITS ---
PROCEDURE INFORMATION: Exam: MG Bilateral Screening 3D Mammography Exam date and time: 08/22/2023 7:31 AM Age: 63 years old Clinical indication: Screening examination TECHNIQUE: Imaging protocol: Bilateral Screening tomosynthesis and 2D mammography including computer-aided detection (CAD) when performed. COMPARISON: 1. MG DMSB DIG MAMM-SCREEN SARAH 10/06/2014 9:14 AM 2. MG DMSB DIGITAL MAMM-SCREEN BILATERAL 10/20/2010 9:58 AM FINDINGS: MAMMOGRAPHY: Breast composition: There are scattered areas of fibroglandular density. Mass: None. Architectural distortion: None. Calcifications: No suspicious calcifications. Asymmetric density: None. Skin thickening: None. Axillary adenopathy: None. IMPRESSION: No mammographic evidence of malignancy. Annual screening is recommended unless otherwise clinically indicated. ASSESSMENT: BI-RADS Category 1: Negative
--- NOTE | 2023-08-22 07:44 | XR_ITS ---
FINAL REPORT TECHNIQUE: Bone mineral density was calculated of the lumbar spine and hip. CLINICAL HISTORY: screening osteoporosis COMPARISON: None FINDINGS: Using the right hip, the bone mineral density of the femoral neck is 0.832 g/cm2, corresponding to T-score of -0.2. Using the left hip, the bone mineral density of the femoral neck is 0.72 g/cm2, corresponding to a T-score of -1.2. Using the right forearm, the bone mineral density of the distal right forearm is 0.49 g/cm?, corresponding to a T-score of -1.6. NOTE: T-score: Standard deviation compared with peak bone mass of young adult mean. *Following the recommendations of the International Society of Bone densitometry, classification of hip BMD is based on the lower of two T-scores; total hip or femoral neck. IMPRESSION: Diminished bone mineral density of the distal right forearm and left hip consistent with low bone density. Normal bone mineral density of the right hip. Reviewed, Interpreted and Dictated by Ruben Rosales III, MD Transcribed by Inga Yuan Authenticated and [facility]
== END 2023-08-22 23:59 ==
LOC: RAD 07:44
PROVIDERS: PCP Nurse Practitioner Family; Visit Provider Nurse Practitioner Family
DX: Z12.31 Encounter for screening mammogram for malignant neoplasm of breast (principal); Z13.820 Encounter for screening for osteoporosis; Z78.0 Asymptomatic menopausal state
CPT/HCPCS: 77063; 77067; 77080

== ENCOUNTER 2023-09-30 08:06 | Emergency (ER) | payer MEDICARE, SELFPAY ==
[2023-09-30 08:15] VITALS: BP 143/93; PULSE 97; RESP 18; TEMP 37.4; O2SAT 95; BMI 43.2
--- NOTE | 2023-09-30 08:38 | ED_ITS ---
Discharge Plan Disposition Patient Disposition: Home, Self-Care Condition: Good Prescriptions Prescriptions: New amoxicillin 875 mg tablet 875 mg PO Q12H Qty: 20 0RF benzonatate 100 mg capsule 100 mg PO TIDP PRN (Reason: Cough) Qty: 30 0RF methylprednisolone 4 mg Tablets,Dose Pack 4 mg PO DIRECTED 6 Days Qty: 21 0RF Rx Instructions: Take 1 pack as directed for 6 days No Action levothyroxine [Euthyrox] 88 mcg tablet 88 mcg PO DAILY Patient Comments: TAKE 1 TABLET BY MOUTH ONCE DAILY, NEED TO MAKE APPOINTMENT FOR REFILLS cabergoline 0.5 mg tablet 0.5 mg PO DAILY Patient Comments: TAKE 1/2 (ONE-HALF) TABLET BY MOUTH TWICE A WEEK One-A-Day Women's 50 Plus 400-20 mcg tablet 1 tab PO DAILY Align 10.5 mg (10 million cell) tablet,chewable See Rx Instructions PO DAILY Rx Instructions: 6 billion cells orally daily; irbesartan 150 mg tablet 150 mg PO DAILY Qty: 90 3RF Referrals Follow up/Referrals: Janiya Ledezma APRN [Primary Care Provider] - See instructions Activity Restrictions/Add. Instructions Additional Instructions/Restrictions: Drink plenty of fluids. Take tylenol or ibuprofen for pain or fever. Take the medications as directed. Follow up with your regular doctor. GO TO THE ER FOR ANY WORSENING SYMPTOMS Clinical Impressions Clinical Impression: Strep throat Instructions Patient Instructions: Strep Throat, DI for Strep Throat Discharge ED Provider: Boston Phillips [facility] [place] HPI General Stated complaint: Runny nose, sore throat, congestion Mode of Arrival: Ambulatory Source of Information: Patient Limitations: No Limitations Time Seen by Provider: 09/30/23 08:38 Description of Symptoms (Recalled from Triage Doc. by RN): Pt's symptoms are cough, congestion, and runny nose. HEENT Symptoms (Recalled from RN notes): Yes Resp Symptoms (Recalled from RN notes): No Skin Symptoms (Recalled from RN notes): No MS Symptoms (Recalled from RN notes): No Functional Status (Recalled from RN notes): n/a History of Present Illness Provider Complaint: She states that for the past 3 days she has had worsening sore throat, sinus congestion, low grade fever, malaise, chest congestion and dry cough. Related Data Home Medications Medication Instructions Recorded Confirmed levothyroxine 88 mcg tablet 88 mcg PO DAILY THYROID 06/20/21 09/30/23 (Euthyrox) cabergoline 0.5 mg tablet 0.5 mg PO DAILY TUMOR 08/29/21 09/30/23 Bifidobacterium infantis 10.5 mg See Rx Instructions PO DAILY 08/08/23 09/30/23 (10 million cell) chewable tablet (Align) peagaszdynvl-chfxfdus-rlkonnv-folic 1 tab PO DAILY 08/08/23 09/30/23 acid 400 mcg-vit K1 20 mcg tablet (One-A-Day Women's 50 Plus) Previous Rx's Medication Instructions Recorded irbesartan 150 mg tablet 150 mg PO DAILY #90 tabs 09/05/23 amoxicillin 875 mg tablet 875 mg PO Q12H #20 tabs 09/30/23 benzonatate 100 mg capsule 100 mg PO TIDP PRN Cough #30 caps 09/30/23 methylprednisolone 4 mg tablets in 4 mg PO DIRECTED 6 days #21 tabs 09/30/23 a dose pack Allergies Allergy/AdvReac Type Severity Reaction Status Date / Time No Known Allergies Allergy Verified 09/30/23 08:27 Worker's Comp Is this a Worker's Comp case?: No [facility] Disclaimer: The information contained in this section may have been updated after the patient was seen, as this information can be updated by other users. 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, [facility] Tick bite of calf Wound dehiscence Pituitary mass Headache Musculoskeletal chest pain Rib pain on left side Low back pain Compression fracture of lumbar vertebra Surgical History History of tubal ligation H/O total knee replacement Left History of carpal tunnel release right elbow History of carpal tunnel release of both wrists History of back surgery Family History Father Diabetes Mother Cancer uterin Brother Cancer bone Brother Heart attack Brother Stroke affected right side Son Heart valve disease Daughter Diabetes Hypertension Heart attack Coronary artery disease Social History Smoking Status: Former smoker tobacco type: cigarettes packs per day: 0 smoking status stop date: 34 years ago alcohol intake: current substance use type: denies use current occupational status: employed Travel in the last 8 weeks: None household members: significant other housing: house current occupational exposures/hazards: No caffeine: Yes ROS Obtained: Yes All systems reviewed & no additional complaints except as documented Constitutional Constitutional: Reports chills and Reports fever(s) Eyes Eyes: Denies eye discharge ENT Ears, Nose, Mouth, and Throat: Reports as per HPI Cardiovascular Cardiovascular: Denies chest pain Respiratory Respiratory: Denies chest congestion and Reports cough Gastrointestinal Gastrointestingal: Reports nausea; Denies abdominal pain, constipation, cram ping, diarrhea or vomiting Musculoskeletal Musculoskeletal: Denies arthralgias Integumentary/Breasts Skin/Breast: Denies rash Neurologic Neurologic: Denies paresthesias Physical Exam General General appearance: alert and in no apparent distress Head Head exam: atraumatic, normocephalic and normal inspection Eye Eye exam: Present normal appearance, PERRL and EOMI ENT ENT exam: Present mucous membranes moist and normal external ear exam Expanded ENT Exam TM/Canal exam: Bilateral TM: erythema and bulging Nose exam: Absent sinus tenderness Mouth exam: Present normal external inspection; Absent drooling Teeth exam: Present normal inspection Throat exam: Present tonsillar erythema, tonsillomegaly and tonsillar exudate Neck Neck exam: Present normal inspection, full ROM and trachea midline; Absent tenderness, meningismus or lymphadenopathy Chest Chest inspection: Present normal inspection and symmetric chest wall rise; Absent tenderness Respiratory Respiratory exam: Present normal lung sounds bilaterally; Absent respiratory distress, wheezes or stridor Cardiovascular Cardiovascular exam: Present regular rate and normal rhythm; Absent systolic murmur or diastolic murmur Abdominal Exam Abdominal exam: Present soft and normal bowel sounds; Absent distention, tenderness, guarding, rebound or rigidity Extremities Exam Extremities exam: Present normal inspection and normal capillary refill; Absent calf tenderness Back Exam Back exam: Present normal inspection and full ROM; Absent tenderness, CVA tenderness (R) or CVA tenderness (L) Neurological Exam Neurological exam: Present alert, oriented X3 and CN II-XII intact Psychiatric Psychiatric exam: Present normal affect and normal mood Skin Skin exam: Present warm, dry, intact and normal color Medical Decision Making Medical Records Medical records reviewed: No I reviewed the patient's medical records. Nir Inquiry Pt receiving controlled substance: No Vital Signs: 09/30/23 08:15 Temperature 99.3 F Temperature Source Oral Pulse Rate [Right Radial] 97 H Respiratory Rate 18 Blood Pressure [Right Arm] 143/93 H Blood Pressure Mean [Right Arm] 109 Blood Pressure Source [Right Arm] Automatic Cuff Blood Pressure Position [Right Arm] Sitting 02 Sat by Pulse Oximetry 95 Oxygen Delivery Method Room Air Lab Data Lab results reviewed: Yes I reviewed the patient's lab results.
[2023-09-30 08:40] LABS: UTC Strep Screen (Rapid) Positive (Negative)
[2023-09-30 09:12] VITALS: BP 143/93; PULSE 97; RESP 18; TEMP 37.4; O2SAT 95
== END 2023-09-30 09:02 | disposition home or self-care (01) ==
PROVIDERS: Emergency Provider Nurse Practitioner Family; PCP Nurse Practitioner Family
DX: J02.0 Streptococcal pharyngitis (principal); R07.0 Pain in throat; R50.9 Fever, unspecified; R09.81 Nasal congestion; R05.9 Cough, unspecified; I10 Essential (primary) hypertension; E03.9 Hypothyroidism, unspecified; Z87.891 Personal history of nicotine dependence
CPT/HCPCS: 87880; 99212; 99214; G0463

== ENCOUNTER 2023-10-14 09:11 | Outpatient (CLI) | payer MEDICARE, SELFPAY ==
--- NOTE | 2023-10-14 09:16 | XR_ITS ---
FINAL REPORT CLINICAL HISTORY: cough, shortness of breath COMPARISON: 07/16/2021 FINDINGS: No acute pulmonary density is evident. There is no evidence of effusion or other pleural disease. The mediastinum has a normal appearance. The cardiac silhouette is unremarkable. IMPRESSION: Unremarkable chest exam. Reviewed, Interpreted and Dictated by Sharon Mckeon MD Transcribed by Fanny Spence Authenticated and [facility]
== END 2023-10-14 23:59 | disposition home or self-care (01) ==
LOC: RAD 09:12
PROVIDERS: PCP Nurse Practitioner Family; Visit Provider Nurse Practitioner Family
DX: R05.9 Cough, unspecified (principal); R06.00 Dyspnea, unspecified
CPT/HCPCS: 71046

== ENCOUNTER 2023-10-17 15:41 | Outpatient (CLI) | payer MEDICARE, SELFPAY ==
[2023-10-17 15:44] LABS: Coronavirus 19, PCR Not Detected (NotDetected); Influenza A, PCR Not Detected (NotDetected); Influenza B, PCR Not Detected (NotDetected)
[2023-10-17 15:56] LABS: Basophils # 0.1 K/mm3 (0-0.2); Basophils % 0.7 % (0.1-2.0); Eosinophils # 0.2 K/mm3 (0.0-0.4); Eosinophils % 2.4 % (0.1-12.0); Hematocrit 40.1 % (37.0-47.0); Lymphocytes # 2.7 K/mm3 (0.7-4.5); Lymphocytes % 30.4 % (10-50); Mean Corpuscular HGB Conc 32.4 g/dL (31.8-35.4); Mean Corpuscular Hemoglobin 30.3 pg (27.0-31.2); Mean Corpuscular Volume 93.6 fl (81-99); Mean Platelet Volume 8.9 fl (7.4-10.4); Monocytes # 0.4 K/mm3 (0.1-1.0); Monocytes % 4.7 % (1.7-9.3); Neutrophils # 5.5 K/mm3 (1.8-7.8); Neutrophils % 61.7 % (37.0-80.0); Platelet Count 270 K/mm3 (142-424); Red Blood Count 4.28 M/mm3 (4.20-5.40); Red Cell Distribution Width 14.3 % (11.5-17.5); White Blood Count 8.9 K/mm3 (4.8-10.8)
[2023-10-17 16:31] LABS: Alanine Aminotransferase 32 U/L (12-78); Albumin Level 4.1 g/dl (3.5-5.0); Albumin/Globulin Ratio 1.4 (1.1-1.8); Alkaline Phosphatase 81 U/L (38-126); Anion Gap 12.2 mEq/L (5-15); Aspartate Amino Transferase 27 U/L (14-36); Bilirubin,Total 0.6 mg/dl (0.2-1.3); Blood Urea Nitrogen 16 mg/dl (7-17); Calcium 9.5 mg/dl (8.4-10.2); Carbon Dioxide 24 mmol/L (22.0-30.0); Chloride 108 mmol/L (98-107); Estimated Glomerular Filt Rate 56 ml/min (>60); GFR (African American) 68 ML/MIN (>60); Globulin 2.9 g/dL (1.3-3.2); Glucose 104 mg/dl (74-100); Potassium 4.2 mmoL/L (3.5-5.1); Sodium 140 mmol/L (136-145)
[2023-10-17 16:37] LABS: NT Pro Brain Natriuretic Pep. 46.7 pg/mL (0-125)
== END 2023-10-17 23:59 | disposition home or self-care (01) ==
LOC: LAB.DROPOF 15:42
PROVIDERS: PCP Nurse Practitioner Family; Visit Provider Nurse Practitioner Family
DX: R06.00 Dyspnea, unspecified (principal); J06.9 Acute upper respiratory infection, unspecified; R05.9 Cough, unspecified; R09.89 Other specified symptoms and signs involving the circulatory and respiratory systems
CPT/HCPCS: 80053; 83880; 85025; 87636

== ENCOUNTER 2023-10-24 08:07 | Outpatient (CLI) | payer MEDICARE, SELFPAY | END 2023-10-24 23:59 | disposition home or self-care (01) | LOC: LAB 08:09 | PROVIDERS: PCP Nurse Practitioner Family; Visit Provider Internal Medicine | DX: D35.2 Benign neoplasm of pituitary gland (principal) | CPT/HCPCS: 36415; 82533 ==

== ENCOUNTER 2023-11-19 09:29 | Outpatient (POV) | payer MEDICARE, SELFPAY | END 2023-11-19 23:59 | disposition home or self-care (01) | LOC: SC 09:29 | PROVIDERS: PCP Nurse Practitioner Family; Visit Provider Dermatology | DX: Z00.00 Encounter for general adult medical examination without abnormal findings (principal) ==

== ENCOUNTER 2023-11-27 10:48 | Outpatient (CLI) | payer MEDICARE, SELFPAY ==
--- NOTE | 2023-11-27 10:51 | XR_ITS ---
FINAL REPORT CLINICAL HISTORY: left foot pain and mass FINDINGS: Left foot Three views were obtained. There is no acute fracture or dislocation. There are mild degenerative changes. No soft tissue abnormality is identified. IMPRESSION: Mild degenerative changes. Reviewed, Interpreted and Dictated by Ruben Rosales III, MD Transcribed by Kelley Castro Authenticated and . [facility]
== END 2023-11-27 23:59 | disposition home or self-care (01) ==
LOC: RAD 10:49
PROVIDERS: PCP Nurse Practitioner Family; Visit Provider Nurse Practitioner Family
DX: M79.672 Pain in left foot (principal); R22.42 Localized swelling, mass and lump, left lower limb
CPT/HCPCS: 73630

== ENCOUNTER 2023-12-02 10:01 | Outpatient (CLI) | payer MEDICARE, SELFPAY ==
--- NOTE | 2023-12-02 10:01 | US_ITS ---
FINAL REPORT CLINICAL HISTORY: left foot mass COMPARISON: None FINDINGS: Limited sonographic images were obtained of the soft tissues of the dorsum of the left foot. There is a hypoechoic abnormality in the deeper soft tissues of the left dorsum of the foot within the region of the palpable abnormality measuring 22 x 20 x 6 mm. This could represent a mass or complex fluid collection. No other abnormality identified. IMPRESSION: Possible mass or complex fluid collection. Recommend further assessment with MRI without and with contrast. Reviewed, Interpreted and Dictated by Sharon Mckeon MD Transcribed by Fanny Spence Authenticated and [facility]
== END 2023-12-02 23:59 | disposition home or self-care (01) ==
LOC: RAD 10:01
PROVIDERS: PCP Nurse Practitioner Family; Visit Provider Nurse Practitioner Family
DX: R22.42 Localized swelling, mass and lump, left lower limb (principal)
CPT/HCPCS: 76882

== ENCOUNTER 2023-12-18 16:23 | Outpatient (CLI) | payer MEDICARE, SELFPAY ==
--- NOTE | 2023-12-18 16:24 | MR_ITS ---
FINAL REPORT CLINICAL HISTORY: left dorsal foot mass/cyst marker on mass/cyst FINDINGS: Multiplanar MR imaging of the left foot was performed without and with contrast. No acute fracture is identified. Mild and moderate degenerative changes are seen, worst involving the midfoot. There is dorsal spurring at the talonavicular joint. Multiple osteochondral lesions are seen of the distal talus and the navicular. There is bone marrow edema involving the distal talus and navicular. A marker was placed at the dorsal aspect of the midfoot at the site of a palpable abnormality. There is contrast-enhancing soft tissue in this region likely representing inflammatory change. No other evidence of mass or cyst is identified. There is thickening of the posterior plantar aponeurosis consistent with plantar fasciitis. The tendons appear intact. IMPRESSION: Moderate degenerative changes of the midfoot with osteochondral lesions of the distal talus and navicular and reactive bone marrow edema. Contrast-enhancing soft tissue dorsal to the midfoot likely representing localized inflammation. Authenticated and [facility]
[2023-12-18] MEDS: SODIUM CHLORIDE 0.9% 10ML SYR (RAD ONLY) 10 ML IV (17:40)
[2023-12-18] MEDS: GADOTERIDOL INJ 20ML SYRINGE 15 ML IV (17:40)
== END 2023-12-18 23:59 | disposition home or self-care (01) ==
LOC: RAD 16:24
PROVIDERS: PCP Nurse Practitioner Family; Visit Provider Nurse Practitioner Family
DX: R22.42 Localized swelling, mass and lump, left lower limb (principal); M79.672 Pain in left foot
CPT/HCPCS: 73720; A9576

== ENCOUNTER 2024-02-05 08:49 | Day surgery (SDC) | payer MEDICARE, SELFPAY ==
[2024-02-03 11:46] VITALS: BMI 43.2
[2024-02-05] VITALS (8 sets, daily range): BP systolic 118–166; BP diastolic 71–90; PULSE 64–76; RESP 16–18; TEMP 36.1–36.2; O2SAT 96–98
[2024-02-05] MEDS: LACTATED RINGERS 1000ML 1,000 ML 100 ML IV (10:15)
--- NOTE | 2024-02-05 10:45 | P.PNANES_ITS ---
[facility] Disclaimer: The information contained in this section may have been updated after the patient was seen, as this information can be updated by other users. Medical History Strep throat Cough URI (upper respiratory infection) Dyspnea HTN (hypertension) Pituitary tumor Hypothyroidism Tick bite of calf Wound dehiscence Pituitary mass Headache Musculoskeletal chest pain Rib pain on left side Low back pain Compression fracture of lumbar vertebra Surgical History History of tubal ligation H/O total knee replacement History of carpal tunnel release History of carpal tunnel release of both wrists History of back surgery Family History Father Diabetes Mother Cancer Brother Cancer Brother Heart attack Brother Stroke Son Heart valve disease Daughter Diabetes Hypertension Heart attack Coronary artery disease Social History Smoking Status: Former smoker tobacco type: cigarettes packs per day: 0 smoking status stop date: 34 years ago alcohol intake: current alcohol intake frequency: a few times a month substance use type: denies use current occupational status: disabled Travel in the last 8 weeks: None household members: significant other housing: house current occupational exposures/hazards: No caffeine: Yes [facility] Anesthesia Checklist Patient Identification Patient Identification: Arm Band and Verbal (Name & ) Structural Data Admitted From: Home Planned Operative Procedure/s: Colonoscopy Consent for Planned Operative Procedure(s) Verified: Yes Verified Documents: Surgical Consent and History and Physical NPO Status Verified Time NPO: 00:00 Additional verifications Anesthesia Reactions: No Hx Blood Transfusions: No Blood Transfusion Reaction: No Airway Assessment Mallampati Score:: Class II C-Spine Mobility Assessed: Yes TMJ Mobility Assessed: Yes Dentition: Good Dentition Neurological Assessment Level of Consciousness: Awake Hx Seizures: No Numbness or tingling in extremities: No Anesthesia Plan Anesthesia Risk discussed: Yes Anesthesia Plan: Verified ASA Class: III Anesthesia Type: MAC
--- NOTE | 2024-02-05 11:35 | P.PNANES_ITS ---
[facility] Disclaimer: The information contained in this section may have been updated after the patient was seen, as this information can be updated by other users. Medical History Strep throat Cough URI (upper respiratory infection) Dyspnea HTN (hypertension) Pituitary tumor Hypothyroidism Tick bite of calf Wound dehiscence Pituitary mass Headache Musculoskeletal chest pain Rib pain on left side Low back pain Compression fracture of lumbar vertebra Surgical History History of tubal ligation H/O total knee replacement History of carpal tunnel release History of carpal tunnel release of both wrists History of back surgery Family History Father Diabetes Mother Cancer Brother Cancer Brother Heart attack Brother Stroke Son Heart valve disease Daughter Diabetes Hypertension Heart attack Coronary artery disease Social History Smoking Status: Former smoker tobacco type: cigarettes packs per day: 0 smoking status stop date: 34 years ago alcohol intake: current alcohol intake frequency: a few times a month substance use type: denies use current occupational status: disabled Travel in the last 8 weeks: None household members: significant other housing: house current occupational exposures/hazards: No caffeine: Yes [facility] Anesthesia Checklist Patient Identification Patient Identification: Arm Band, Family and Verbal (Name & ) Structural Data Admitted From: Home Planned Operative Procedure/s: Colonoscopy Consent for Planned Operative Procedure(s) Verified: Yes Verified Documents: Surgical Consent and History and Physical NPO Status Verified Time NPO: 16:00 Chart Verification Results Verified: CBC, BMP, ECG and Chest Xray Additional verifications Patient : No Anesthesia Reactions: No Hx Blood Transfusions: No Blood Transfusion Reaction: No
--- NOTE | 2024-02-05 12:26 | P.PCN_ITS ---
Procedure: Date: 02/05/24 Patient Date of :: 1960 Procedure Performed:: Colonoscopy Indications:: The patient is a 63-year-old who presents for a colonoscopy for having a positive Cologuard test. Performing Provider:: Wilman Vogt MD Referring Provider:: Janiya Ledezma APRN Sedation:: See RN record Procedure:: After placing the patient in the left lateral decubitus position, the colonoscopy was gently inserted into the rectum and under direct visualization advanced to the proximal ascending colon. Color, texture, mucosa, and anatomy of the colon were carefully examined with the scope. Findings:: The colonoscopy was technically difficult secondary to the patient's body habitus, a tortuous sigmoid colon, and significant looping of the pediatric co lonoscope. Despite counter abdominal pressure and patient maneuvering, the cecum could not be fully intubated for evaluation. There was a polyp (less than 10 mm in size) seen in the mid ascending colon. The polyp was removed by hot snare polypectomy. The polyp was retrieved. On evaluation of the cecum in long view a polyp measuring less than 10 mm in size was seen. The polyp was removed completely by cold snare polypectomy. The polyp displaced into the cecum after removal and could not be retrieved. The quality of the bowel preparation was fair in the rectum and sigmoid colon, the remaining colon was good. There was extensive diverticulosis seen within the ascending colon, hepatic flexure, transverse colon, and sigmoid colon. Internal hemorrhoids were seen on retroflexion view of the rectum. Impression: Polyp of cecum Polyp of ascending colon Extensive diverticulosis Recommendations:: Await pathology results Recommend barium enema for better evaluation of the cecum Will recommend a repeat colonoscopy in 2-3 years if barium enema is unremarkable Complications:: Await pathology results Estimated blood obtained (mL): 0 Colonoscopy Component Colonoscopy Component Was a colonoscopy performed during today's procedure?: Yes Recommended follow up colonoscopy of at least 10 years?: Yes
--- NOTE | 2024-02-05 12:31 | EXP.ANES.I ---
[facility] Anesthesia Record Part I Anesthesia Record I Intake, IV Amount: 600 Hydration: Adequate Estimated blood loss (mL): 5 Urine output (mL): 0 Blood Products used (#): none Blood Pressure: 118/71 SaO2: 96 Pulse Rate: 68 Airway Patency: Patent Respiratory Rate: 16 Temperature: 97.0 F Patient is:: Awake (Talking) and Stable Stable to PACU at:: 12:35
== END 2024-02-05 12:57 | disposition home or self-care (01) ==
PROVIDERS: PCP Nurse Practitioner Family; Visit Provider Internal Medicine
PROC: (CPT 45385; principal; 2024-02-05 10:30)
DX: Z12.11 Encounter for screening for malignant neoplasm of colon (principal); R19.5 Other fecal abnormalities; K63.5 Polyp of colon; K57.90 Diverticulosis of intestine, part unspecified, without perforation or abscess without bleeding; K64.8 Other hemorrhoids
CPT/HCPCS: 45385; J2704; J7120

== ENCOUNTER 2024-04-10 07:41 | Outpatient (CLI) | payer MEDICARE, SELFPAY ==
--- NOTE | 2024-04-10 07:42 | FL_ITS ---
FINAL REPORT CLINICAL HISTORY: incomplete scope 1.41 min DAP 6949.84 FINDINGS: BARIUM ENEMA HISTORY: Incomplete colonoscopy. PROCEDURE: Single-contrast barium was introduced by gravity drip. Spot and overhead films were obtained. FINDINGS: Airline Pilot/First Officer film is unremarkable. The colon is very redundant limiting evaluation ability to distend the colon. There is extensive oquendo diverticulosis. The appendix is well identified and appears normal. The cecum is rather cone shaped in appearance. There is a relative narrowing near the region of the ileocecal valve. This may be secondary to nondistention but an annular lesion cannot be entirely excluded. Colonoscopic correlation with attention to the ileocecal region is recommended. IMPRESSION: 1. Extensive oquendo diverticulosis. 2. Questionable narrowing of the distal colon near the region of the ileocecal valve. This may be secondary to nondistention but an annular lesion is not entirely excluded. Fluoroscopy exposure time: 1 minute 41 seonds. Radiation exposure in reference tin DAP: 6949.84 Images reviewed, interpreted, and dictated by Dr. Tomás Kelly. Transcribed by Michael Castellon PA-C. Reviewed, Interpreted and Dictated by Tomás Kelly MD Transcribed by ELO Bruner Authenticated and [facility]
[2024-04-10] MEDS: BARIUM SULFATE(E-Z-AC);1900ML BOTTLE 1900 ML PO (08:49)
== END 2024-04-10 23:59 | disposition home or self-care (01) ==
LOC: RAD 07:42
PROVIDERS: PCP Nurse Practitioner Family; Visit Provider Nurse Practitioner Family
DX: R11.10 Vomiting, unspecified (principal)
CPT/HCPCS: 74270

== ENCOUNTER 2024-07-23 16:54 | Outpatient (CLI) | payer MEDICARE, SELFPAY ==
[2024-07-23 16:51] LABS: Coronavirus 19, PCR Not Detected (NotDetected); Human Rhinovirus Not Detected (NotDetected); Influenza B, PCR Not Detected (NotDetected); Respiratory Syncytial Virus Not Detected (NotDetected)
[2024-07-24 06:05] LABS: Influenza A, PCR Detected (NotDetected)
== END 2024-07-23 23:59 | disposition home or self-care (01) ==
LOC: LAB.DROPOF 16:54
PROVIDERS: PCP Nurse Practitioner Family; Visit Provider Nurse Practitioner Family
DX: R50.9 Fever, unspecified (principal); J09.X9 Influenza due to identified novel influenza A virus with other manifestations; Z87.891 Personal history of nicotine dependence
CPT/HCPCS: 87631

== ENCOUNTER 2024-08-19 12:24 | Outpatient (CLI) | payer MEDICARE, SELFPAY ==
--- NOTE | 2024-08-19 12:28 | XR_ITS ---
FINAL REPORT CLINICAL HISTORY: Ankle Pain FINDINGS: LEFT ANKLE Three views were obtained. There is no fracture or dislocation. There are mild degenerative changes of the ankle joint. There are severe degenerative changes of the talonavicular joint. No soft tissue abnormality is identified. IMPRESSION: Degenerative changes, more pronounced involving the talonavicular joint. Reviewed, Interpreted and Dictated by Sharon Mckeon MD Transcribed by Kelley Castro Authenticated and [facility]
--- NOTE | 2024-08-19 12:28 | XR_ITS ---
FINAL REPORT CLINICAL HISTORY: Pain FINDINGS: LEFT TIBIA FIBULA Two views were obtained. There is no fracture or dislocation. Patient is status post arthroplasty changes of the left knee. There are degenerative changes of the ankle. Please refer to ankle report. IMPRESSION: No acute process. Reviewed, Interpreted and Dictated by Sharon Mckeon MD Transcribed by Kelley Castro Authenticated and [facility]
== END 2024-08-19 23:59 | disposition home or self-care (01) ==
LOC: RAD 12:25
PROVIDERS: PCP Nurse Practitioner Family; Visit Provider Podiatrist
DX: M25.372 Other instability, left ankle (principal); M25.572 Pain in left ankle and joints of left foot
CPT/HCPCS: 73590; 73610

== ENCOUNTER 2024-10-30 13:38 | Outpatient (RCR) | payer MEDICARE, SELFPAY ==
--- NOTE | 2024-10-30 15:51 | HMH.PTOPWND ---
Rehab Outpt Wound Evaluation Rehab OP Wound Evaluation Start: 10/30/24 15:27 Freq: Status: Active Protocol: Document 10/30/24 15:27 CRISTINA (Rec: 10/30/24 15:50 PHORJUANIS [id number]) E-signed By Cam Dowd, PT Subjective/History History History This is the initial PT lymphedema eval for B LE lymphedema x ~ 1 yr with insidious onset of symptoms. She reports L LE is significantly worse than R due to a mass in my ankle. She reports considerable pain with her L ankle which limits her ability to ambulate and mobilize at baseline. She reports edema is worse with prolonged dependent positioning. She has PMH of hypothyroid, pituitary tumor, HTN, L TKA. Subjective Subjective Pt c/o 9/10 pain in the L lower leg at this time. 2/4 TTP noted to L lower leg. Minimal erythema noted L lower leg. 1+ pitting edema noted to B lower legs. Lymphedema Eval Classification of Lymphedema Secondary Lymphedema Yes Stemmer's sign Stemmer's Sign no Stage of Lymphedema Lymphedema stages Stage I (Pitting edema, reduces w/ elevation, no fibrosis) Skin Changes Dry Skin Yes Redness Yes Other Changes Yes Pain Scale Pain Scale (0-10) 9 Affected Extremities Areas Affected by Lymphedema/Edema Right Lower Extremity,Left Lower Extremity Lower Extremity Measurements Left MTP Measurement (cm) 24.7 Heel Measurement (cm) 35.1 10 cm Proximal to Lateral Malleoli 29.8 Measurement (cm) 20 cm Proximal to Lateral Malleoli 38.3 Measurement (cm) 30 cm Proximal to Lateral Malleoli 47.0 Measurement (cm) 40 cm Proximal to Lateral Malleoli 46.6 Measurement (cm) 50 cm Proximal to Lateral Malleoli 0 Measurement (cm) 60 cm Proximal to Lateral Malleoli 0 Measurement (cm) Lower Extremity Measurement Total (cm) 221.5 Manual Lymphatic Drainage Treatment Area MLD Treatment Area Right Lower Extremity,Left Lower Extremity Wound Problems/Impairments Impairments Problems/Impairmments Palpation Tenderness,Impaired Walking,Impaired Household Care,Increased Edema, Lymphedema Present,Subjective C/O Pain,Impaired Self Care/ Self Management Prognosis Rehab Potential Good Comment Skilled therapy is indicated to reduce overall edema of B lower legs in order to aid reduction of pain and improve mobility to return pt to PLOF with all ADLs. Clinical Impression Consistent with Diagnosis Yes Short Term Goals Number of Weeks 2 Decreased Palpation Tenderness Yes: 1/4 L lower leg Decrease Edema Yes: No pitting edema to B LE Decrease Subjective C/O Pain Yes: 7/10 L LE Decrease Girth Measurments by (cm) Yes: L LE total by 5 cm Grocery Shopper Goals Number of Weeks 4 Decreased Palpation Tenderness Yes: 0/4 L lower leg Decrease Lymphedema Yes: No fibrotic edema to L LE Decrease Subjective C/O Pain Yes: 4/10 L lower leg Patient to be Ind w/ HEP Yes Patient to be Ind w/ [place] Yes Compression Garments Decrease Girth Measurments by (cm) Yes: L LE total by 15 cm Outpatient Therapy Plan of Care Treatment Plan May Include Therapeutic Exercise Including Home Yes Exercise Program Manual Therapy Techniques Yes Neuromuscular Re-education Yes Therapeutic Activities to Return to Yes Previous Functional/Work Level ADL/Self Care Education Yes Orthotics/Bracing/Splinting Yes Manual Lymphatic Drainage Yes Eval/Re-Eval Yes Frequency Times per week 2 Duration Number of Weeks 4 Addendums This patient is a candidate for social No or vocational rehab? Patient/Guardian verbally acknowledges Yes understanding of treatment program and consents to further treatment? Patient/Guardian verbally acknowledges Yes understanding of diagnosis, prognosis and goals for treatment? Eval Complexity PT Charges 05615 - Moderate Complexity PHYSICIAN CERTIFICATION: I certify the specified therapy services for Rosemary Tierney are required, authorized, and reviewed every 30 days.
== END 2024-10-30 23:59 | disposition home or self-care (01) ==
LOC: PT 13:38
PROVIDERS: PCP Nurse Practitioner Family; Visit Provider Podiatrist
DX: I89.0 Lymphedema, not elsewhere classified (principal)
CPT/HCPCS: 97162

== ENCOUNTER 2024-12-10 07:36 | Outpatient (CLI) | payer MEDICARE, SELFPAY ==
--- OUTSIDE RECORDS SUMMARY | 2024-11-05 22:03 | XMS_ITS | Continuity of Care Document ---
Author Organization [facility] Phone Care Team Providers Care Rehabilitation Inspector Name Role Phone CASE, EVON Cat Primary Attending CASE, EVON W Surgeon TENZIN STEVENS Primary Care Unavailable CASE, EVON Cat Unavailable CASE, EVON Cat Admitting ALLERGIES AND ADVERSE REACTIONS ALLERGIES AND ADVERSE REACTIONS Code System Allergy Substance Adverse Reaction Date Reaction (Severity) Comment Status Reported By Updated By No Known Allergies [id number] on June 30, 2024 4:14:20 PM [facility] FAMILY HISTORY RELATION: Father Status: Cause of : Unknown Age at : 91 SNOMED-CT Diagnosis Age At Onset [id number] Diabetes mellitus [id number] Hypertensive disorder RELATION: Mother Status: Cause of : Unknown Age at : 45 SNOMED-CT Diagnosis Age At Onset [id number] Malignant tumor of colon RESULTS Patient: HARPREET Christian Date of : [birth year] 5 LABORATORY RESULTS Information is not available LABORATORY NARRATIVE RESULTS Information is not available RADIOLOGY RESULTS Information is not available PATHOLOGY NARRATIVE RESULTS ORDER 200: PATHOLOGY SPECIME N (LOINC: 10807-4) ORDER DATE: November 02, 2024 6:48:00 PM [facility] Specimen Source: PATH Specimen Type: Refer to path ology laboratory PERFORMING LAB: [address] [id number] Final Result Date: November 05 10:38:00 PM [facility] [place] [facility] [place] TEST: PATHOLOGY SPECIMEN SEE SCANNED RPT MICROBIOLOGY RESULTS No Micro Labs/Results Exist for Patient BLOOD ADMIN RESULTS Information is not available MEDICATIONS HOME MEDICATIONS Status [facility] Medication Dose Route Frequency Dates Comments Reported By Updated By Active [id number] 761442 80488 Cabergoline Oral Tablet 0.5 MG 0.5 MG ORAL QTHURS Last Dose: October 29, 2024 1:00:0 0 PM [place] [id number] on November 02, 2024 5:14:41 PM [facility] Active 804556 704704 08104 levothyroxin e (SYNTHROID) 88.0 MCG ORAL ACB Last Dose: November 02, 2024 9:30:0 0 AM [place] [id number] on November 02, 2024 5:15:16 PM [facility] Active 150553 506271 50756 Irbesartan Oral Tablet 150 MG 1.0 TAB ORAL DAILY Last Dose: November 01, 2024 1:00:0 0 PM [place] [id number] on November 02, 2024 5:15:01 PM [place] Active 616095 469252 23166 Cabergoline Oral Tablet 0.5 MG 0.5 MG ORAL QMON Last Dose: October 26, 2024 1:00:0 0 PM [place] [id number] on November 02, 2024 5:14:51 PM [facility] DISCHARGE MEDICATIONS [facility] Medication Dose Route Frequency Dates Comments Physician Updated By No Discharge Medication Info rmation Available INPATIENT MEDICATIONS Status [facility] Medication Dose Route Frequency Rat e Quantity Dates Comments Physician Updated By Discont inued 545831 6928 8011 704 LACTATED RINGERS SOLN 1000. 0 ML INTRAV ENOUS ONE TIME ADMINISTRA TION (UNSCHEDUL ED) 25.0 ML/HR Start: 2024 7:40:0 0 PM [place] End: November 03, 2024 12:35: 00 AM [place] ARNIE LEGER [id number] on November 03, 2024 4:25:00 AM [place] Discont inued 7707431 8450 8004 904 sodium chloride 0.9% SOLN 1000. 0 ML INTRAV ENOUS ONE TIME ADMINISTRA TION (UNSCHEDUL ED) 25.0 ML/HR Start: 2024 7:40:0 0 PM UT End: November 03, 2024 12:35: 00 AM [facility] ARNIE LEGER [id number] on November 03, 2024 4:25:00 AM [place] Discont inued 4286343 6127 5034 542 PROPOFOL 500 MG/50ML EMUL 1000. 0 MG INTRAV ENOUS ONE TIME ONLY (SCHEDULED DOSE) 41.667 MG/HR Start: November 02, 2024 3:26:0 0 PM UT End: November 03, 2024 12:35: 00 AM [place] WILLIS Cat [id number] on November 03, 2024 3:28:00 PM [facility] Discont inued 656659 0864 8011 704 LACTATED RINGERS SOLN 1000. 0 ML IV CONTIN UOUS ONE TIME ONLY (SCHEDULED DOSE) Start: November 02, 2024 3:00:0 0 PM UT End: November 02, 2024 3:00:0 0 PM [place] WILLIS Cat INTERFAC ED on November 02, 2024 4:00:00 AM [facility] SOCIAL HISTORY SOCIAL HISTORY SNOMED-CT Social History Element Description Effective Dates Offered Cessation Comment UpdatedBy [id number] Current Tobacco smoking status Former Smoker [id number] on June 30, 2024 4:14:23 PM [facility] SOCIAL HISTORY - Gender Sex: Female SOCIAL HISTORY - Status : status i nformation is not available Intention in Next Year: intention information is not available SOCIAL HISTORY - Sexual Behavior Sexual Orientation Gender Identity SNOMED-CT Description SNO MED -CT Description Activity Level No of Partners Partner Type UpdatedBy Information is not available VITAL SIGNS PATIENT VITAL SIGNS This section displays the mo st recent value for each vital sign as of November 06, 2024 2:03:57 AM [facility] Loinc Code Vital Sign Activity Date Result Updated By 8302-2 Body height November 02, 2024 5:14:11 PM [facility] 165.1 cm (65.0 in) [id number] on November 02, 2024 5:14:11 PM [facility] 17770-4 Body mass index (BMI) [Ratio] November 02, 2024 5:14:11 PM [place] 43.322 kg/m2 [id number] on November 02, 2024 5:14:11 PM [facility] 3140-1 Body Surface Area Derived From Formula November 02, 2024 5:14:11 PM [facility] 2.2128 m2 [id number] on November 02, 2024 5:14:11 PM [facility] 97325-1 Body weight Measured November 02 5:14:11 PM [facility] 118.1 kg (260.0 lb) [id number] on November 02, 2024 5:14:11 PM [facility] PEDIATRIC GROWTH CHART - VITAL SIGNS This section displays Head C ircumference Percentile, Weight for Length Percentile and BMI Percentile Loinc Code Pediatric Measure Age (Months) Result Updat ed By No Pediatric Growth Chart Pe rcentile Information Available. PROCEDURES PATIENT PROCEDURES CODE SYSTEM DESCRIPTION STATUS PERFORMED DATE UPD ATED BY [id number] SNOMED-CT Colonoscopy completed November 02, 2024 4:00:00 AM [place] [id number] on November 02, 2024 6:23:34 PM UT PROCEDURE NOTE Procedure Note information i s not available. HEALTH CONCERNS Problems Concern Status Health Concern problem infor mation not available. Smoking Status Status Years Used Consumed packs p er day Health Concern smoking histo ry information not available. Family History Concern Status Health Concern family histor y information not available. ENCOUNTERS ENCOUNTER INFORMATION Reason for Visit DX COLON Admission November 02, 2024 4:35:[address] [address] Discharge November 03, 2024 12:35:00 AM [facility] DIS CHARGED TO HOME OR SELF CARE ENCOUNTER DIAGNOSES Notes information is not stanislaw ilable. Code System Diagnosis Onset Date Diagnosis information is not available. ABSTRACT DIAGNOSES Code System Diagnosis Updated By R14.0 ICD10 ABDOMINAL DISTENSION (GASEOU S) [id number] on November 04, 2024 9:58:20 PM UT Z12.11 ICD10 ENCOUNTER FOR SC REENING FOR MALIGNANT NEOPLASM OF COLON [id number] on November 04, 2024 9:58:20 PM UT K57.30 ICD10 DIVERTICULOSIS O F LARGE INTESTINE WITHOUT PERFORATION OR ABSCESS WITHOUT BLEEDING [id number] on November 04, 2024 9:58:20 PM UT K63.5 ICD10 POLYP OF COLON [id number] on 2024 9:58:20 PM UT I10 ICD10 ESSENTIAL (PRIMARY) HYPERTEN DEEPIKA [id number] on November 04, 2024 9:58:20 PM UT E03.9 ICD10 HYPOTHYROIDISM, UNSPECIFIED [id number] on November 04, 2024 9:58:20 PM [place] CARE TEAM Care Rehabilitation Inspector Role EVON CASE Primary Attending EVON CASE Surgeon TENZIN STEVENS Primary Care EVON CASE Referring EVON PEDRO Admitting HISTORY AND PHYSICAL NOTE HISTORY AND PHYSICAL NOTE Note Title Nurse Intake Note Date Of Service June 30, 2024 4:1 5:32 PM UT Created By [id number] on June 172024 4:15:32 PM UTC Signed By [id number] on June 172024 4:15:42 PM UTC Past Medical History Neoplasm of pituitary gland Hypertensive disorder Hypothyroidism Past Surgical History Total knee replacement, left Implantation of neurostimulator electrode onto spinal nerve root Arthroscopy of knee, left Decompression of median nerve, bilateral Lumbar spinal fusion, L4-L5 Procedure on back Arthroscopy of knee, RIGHT KNEE in 2020 Family History Parents Father @ 91 Diabetes mellitus; Hypertensive disorder Mother @ 45 Malignant tumor of colon Social History tobacco use Former Smoker, 0 yrs alcohol use No Known Use drug use No Known Use marital status Procedures and Surgeries (Current Encounter) None Electronically signed by Anna Buitrago RN on 1115 CARE TEAM CARE plan rep Role on Team Status Start Date End Date Update d By CASE EVON Emory CLARISSA Surgeon normal November 02 4:00:00 AM UTC November 03, 2024 12:35:00 AM UTC [id number] on November 04, 2024 9:59:01 PM UTC RODNEY DAVE PCP normal November 02, 2024 4:36:38 PM UTC November 02, 2024 4:00:00 AM UTC [id number] on November 04, 2024 9:59:01 PM UTC CASE EVON Cat CLARISSA Referring normal November 02 4:36:38 PM UTC November 02, 2024 4:00:00 AM UTC [id number] on November 04, 2024 9:59:01 PM UTC EMANUEL ROMO PCP normal June 24, 2024 9:10:12 PM UTC November 02, 2024 4:36:38 PM UTC [id number] on November 04, 2024 9:59:01 PM UTC CASE EVON Cat CLARISSA Attending normal June 24, 2024 9:10:12 PM UTC November 02, 2024 4:00:00 AM UTC [id number] on November 04, 2024 9:59:01 PM UTC CASE EVON Cat CLARISSA Admitting normal June 24, 2024 9:10:12 PM UTC November 02, 2024 4:00:00 AM UTC [id number] on November 04, 2024 9:59:01 PM UTC
--- OUTSIDE RECORDS SUMMARY | 2024-12-10 07:40 | XMS_ITS | Encounter Summary ---
Author Organization [facility] Address [address] [place] [address] Care Team Providers Care Forging Operator Name Role Phone AlbertaWard felipe Jeb Primary Care Provider Paul Jj MD Unavailable [phone] Haritha Inman Unavailable Encounter Details Date Type Department Care Team (Late st Contact Info) Description 09/15/2024 Telephone [facility] [address], [address] [place] [address] Paul Jj MD [address] [place] [address] Social History Tobacco Use Types Packs/Day Years Used Date Smoking Tobacco: Former Cigarettes 1 7 - 1986 Smokeless Tobacco: Never Alcohol Use Standard Drinks/Week Comments Yes 0 (1 standard drink = 0.6 oz pur e alcohol) occasionally Comments No Sex and Gender Information Value Date Recorded Sex Assigned at Not on file Legal Sex Female 8:38 PM EDT Gender Identity Not on file Sexual Orientation Not on file documented as of this encounter Miscellaneous Notes * Telephone Encounter - Maxine Nichols - 09/15/2024 9:56 AM EDT Patient Phone Message Reason for Call: Pt is calling and was to have an appointment and MRI she had one scheduled last September but MD had tocancel and it has not been rescheduled. Please advise. Best contact number and optimal time of day to reach caller: [phone] Note: Please do not reply to this message. Follow-up communication and further actions as a result of this message need to be communicated with the patient directly, if the patient is not active onMyChart. If the patient is active on MyChart, they will receive notification of the communication/outcome via MyChart. documented in this encounter Plan of Treatment Upcoming Encounters Date Type Department Care Team (Late st Contact Info) Description 10/01/2025 11:30 AM EDT Appointment [facility] [address]st [place] [address] 10/01/2025 1:45 PM EDT [facility] [address], [address] [place] [address] Paul Jj MD [address] [place] [address] documented as of this encounter Visit Diagnoses Not on filedocumented in this encounter Additional Health Concerns Assessment Noted Time A fall risk assessment has been complete d for the patient 09/20/2023 12:40 PM EDT A Body Mass Index follow-up plan has been documented for the patient 09/20/2023 1:16 PM EDT documented as of this encounter Care Teams Forging Operator Relationship Specialty Start Date End Date [address] [place], [place] [id number] PCP - General 08/11/21 Paul Jj MD [address] [place] [address] Surgeon Neurosurgery 09/22/21 Haritha Inman PA [address] [place] [address] Physician Band Machine Operator Neurology 10/08/22 documented as of this encounter
--- OUTSIDE RECORDS SUMMARY | 2024-12-10 07:40 | XMS_ITS | Clinical Summary ---
Author Organization [facility] Address [address] [place] [address] Care Team Providers Care Casting Room Operator Name Role Phone AlbertaWard felipe Jeb Primary Care Provider [phone] Paul Jj MD Unavailable [phone] Haritha Inman Unavailable [phone] Allergies No known active allergies Medications HYDROcodone-acet aminophen ([place]) 7.5-325 MG tablet Take 1 tablet by mouth every 8 (eight) hours if needed. 07/29/2021 Active amLODIPine-atorv astatin (Caduet) 10-10 MG tablet Take 1 tablet by mouth 1 (one) time each day. Active levothyroxine (Synthroid, Levoxyl) 88 MCG tablet Take 1 tablet (88 mcg) by mouth 1 (one) time each day before breakfast. Active cabergoline (Dostinex) 0.5 MG tabletIndication s:Benign neoplasm of pituitary gland (CMS/HCC) Take 0.5 tablets (0.25 mg total) by mouth 2 (two) times a week. 8 tablet 09/28/2021 Active oxyCODONE-acetam inophen (Percocet) 5-325 MG tablet Take 1 tablet by mouth every 4 (four) hours if needed. 11/15/2021 Active gabapentin (Neurontin) 100 MG capsule 10/11/2021 Active doxycycline (Vibramycin) 100 MG capsule Take 100 mg by mouth. 09/30/2022 Active ibuprofen 100 MG chewable tablet Chew every 6 (six) hours if needed for mild pain. Active amitriptyline (Elavil) 25 MG tabletIndication s:Migraine without aura and without status migrainosus, not intractable Take 1 tablet (25 mg total) by mouth every night. 30 tablet 11 10/08/2022 Active irbesartan (Avapro) 150 MG tablet 09/07/2023 Active Active Problems Problem Noted Date Diagnosed Date Obesity (BMI 35.0-39.9 without comorbidity) 01/2022 Benign neoplasm of pituitary gland 08/11/2021 Neurogenic pain, leg 04/04/2017 Foraminal stenosis of cervical region 04/01/2017 Multilevel degenerative disc disease 04/01/2017 Encounters Date Type Department Care Team Description 09/15/2024 Orders Only [facility] [address] [place] [address] Paul Jj MD Prolactinoma (CMS/HCC) (Primary Dx) 09/15/2024 Telephone [facility] [address], [address]st [place] [address] Paul Jj MD from Last 3 Months Social History Tobacco Use Types Packs/Day Years Used Date Smoking Tobacco: Former Cigarettes 1 957 - 1986 Smokeless Tobacco: Never Tobacco Cessation:Counseling Given: Not Answered Alcohol Use Standard Drinks/Week Comments Yes 0 (1 standard drink = 0.6 oz pur e alcohol) occasionally Comments No Sex and Gender Information Value Date Recorded Sex Assigned at Not on file Legal Sex Female 8:38 PM EDT Gender Identity Not on file Sexual Orientation Not on file Last Filed Vital Signs Vital Sign Reading Time Taken Comments Blood Pressure 130/77 09/20/2023 12:40 PM EDT Pulse 82 10/09/2022 11:06 AM EDT Temperature 36.4 C (97.5 F) 07/26/2021 2:22 PM EST Respiratory Rate 20 10/09/2022 11:06 AM EDT Oxygen Saturation 99% 10/09/2022 11:06 AM EDT Inhaled Oxygen Concentration - - Weight 117 kg (257 lb) 09/20/2023 12:40 PM EDT Height 165.1 cm (5' 5 ) 09/20/2023 12:40 PM EDT Body Mass Index 42.77 09/20/2023 12:40 PM EDT Plan of Treatment Upcoming Encounters Date Type Department Care Team (Late st Contact Info) Description 10/01/2025 11:30 AM EDT Appointment [facility] [address], 1st [place] [address] 10/01/2025 1:45 PM EDT Office Visit [place] [facility] [address], [address] [place] [address] Paul Jj MD [address] [place] [address] Health Maintenance Due Date Last Done Comments [facility]-Depression Screening 1961 [facility]-HIV Screening 1961 [facility]-Hepatitis C Screening 1961 [facility]-Medicare Annual Wellness (AWV) 1961 [facility]-Infant/Child/Adol SDOH Screenings 1961 [facility]Y- SDOH Screenings 1979 [facility]Y-Adult SDOH Screenings 1979 CT Colonography 2006 Colonoscopy 2006 FIT-DNA 2006 FIT 2006 FOBT 2006 Sigmoidoscopy 2006 [facility]Y-Colorectal Cancer Screening 2006 [facility]Y-Breast Cancer Screening 2011 UKY-Pneumococcal Vaccine: 50 + Years (1 of 1 - PCV) 2011 UKY-Zoster Vaccines (1 of 2) 2011 [facility]Y-RSV Vaccine: 60+ Years o r (1 - Risk 60-74 years 1-dose series) 2021 [id number] Vaccine ( season) 2024 05/19/2021, 08/31/2020, 08/10/2020 UKY-Influenza Vaccine (Seas[place] n Ended) 2025 UKY-DTaP,Tdap,and Td Vaccine s (3 - Td or Tdap) 11/12/2029 11/13/2019, 05/06/2007 [facility]Y-Obesity Intervention Completed 024, 10/09/2022, 10/08/2022 HPV Vaccines Aged Out No longer eligi ble based on patient's age to complete this topic UKY-HIB Vaccines Aged Out No longer e ligible based on patient's age to complete this topic [facility]-Hepatitis A Vaccines Aged Out No longer eligible based on patient's age to complete this topic UKY-IPV Vaccines Aged Out No longer e ligible based on patient's age to complete this topic UKY-Rotavirus Vaccines Aged Out No lo nger eligible based on patient's age to complete this topic Insurance [employer] Care Teams Casting Room Operator Relationship Specialty Start Date End Date [address] [place] [address] PCP - General 08/11/21 Paul Jj MD [address] [place] [address] Surgeon Neurosurgery 09/22/21 Haritha Inman PA [address] [place] [address] Physician Student Success Coach Neurology 10/08/22
[2024-12-11 15:51] LABS: Cortisol,AM 0.5 ug/dL (6.2-19.4)
[2024-12-16 08:41] LABS: Dexamethasone 334 ng/dL (.)
== END 2024-12-10 23:59 | disposition home or self-care (01) ==
LOC: LAB 07:37
PROVIDERS: PCP Nurse Practitioner Family; Visit Provider Internal Medicine
DX: D35.2 Benign neoplasm of pituitary gland (principal)
CPT/HCPCS: 36415; 80299; 82533

== ENCOUNTER 2025-03-19 07:33 | Outpatient (CLI) | payer MEDICARE, SELFPAY ==
--- NOTE | 2025-03-19 07:38 | XR_ITS ---
FINAL REPORT CLINICAL HISTORY: Evaluation of Left Foot Pain FINDINGS: LEFT FOOT Three views were obtained. There is no fracture or dislocation. There are advanced hypertrophic changes at the talonavicular joint. No soft tissue abnormality is identified. IMPRESSION: Advanced hypertrophic changes at the talonavicular joint. Reviewed, Interpreted and Dictated by Tomás Kelly MD Transcribed by Kelley Castro Authenticated and [facility]
--- NOTE | 2025-03-19 07:38 | XR_ITS ---
FINAL REPORT CLINICAL HISTORY: Evaluation of Left Ankle Pain FINDINGS: LEFT ANKLE Three views were obtained. There is no fracture or dislocation. There are advanced hypertrophic changes at the talonavicular joint. The mortise is intact. There is moderate diffuse soft tissue edema about the ankle. IMPRESSION: Soft tissue edema and degenerative changes as above. Reviewed, Interpreted and Dictated by Tomás Kelly MD Transcribed by Kelley Castro Authenticated and [facility]
== END 2025-03-19 23:59 | disposition home or self-care (01) ==
LOC: RAD 07:34
PROVIDERS: PCP Nurse Practitioner Family; Visit Provider Podiatrist
DX: M19.072 Primary osteoarthritis, left ankle and foot (principal); M79.89 Other specified soft tissue disorders
CPT/HCPCS: 73610; 73630

== ENCOUNTER 2025-03-22 09:42 | Outpatient (CLI) | payer MEDICARE, SELFPAY ==
--- OUTSIDE RECORDS SUMMARY | 2025-03-22 09:45 | XMS_ITS | Encounter Summary ---
Author Organization [facility] Address [address] [place] [address] Care Team Providers Care Activities Leader Name Role Phone Janiya Ledezma JOAN Primary Care Provider [phone] Encounter Details Date Type Department Care Team (Late Contact Info) Description 12/02/2024 Results Follow-Up [facility] ENDOCR[facility] [address] [address] Tiffani Morris MD [address] [place] [address] Social History Tobacco Use Types Packs/Day Years Used Date Smoking Tobacco: Former Cigarettes 0.3 1.1 Passive Smoke Exposure: Past Smokeless Tobacco: Never Comments:Did not smoke very much Alcohol Use Standard Drinks/Week Comments Yes 1 (1 standard drink = 0.6 oz pur e alcohol) 1 evrey two weeks Comments Unknown Sex and Gender Information Value Date Recorded Sex Assigned at Not on file Legal Sex Female 4:42 PM EDT Gender Identity Not on file Sexual Orientation Not on file documented as of this encounter Plan of Treatment Upcoming Encounters Date Type Department Care Team (Late Contact Info) Description 06/03/2025 9:30 AM EST Office Visit [facility] [address] [facility] [address] [place] [address] Tiffani Morris MD [address] [place] [address] documented as of this encounter Visit Diagnoses Not on filedocumented in this encounter Care Teams Activities Leader Relationship Specialty Start Date End Date Janiya Ledezma APRN [address] [place] [address] [place] [id number] PCP - General Nurse Practitioner 09/03/23 documented as of this encounter
--- OUTSIDE RECORDS SUMMARY | 2025-03-22 09:45 | XMS_ITS | Clinical Summary ---
Author Organization [facility] Address [address] [place] [address] Care Team Providers Care Proc Tech Name Role Phone Darien Janiya FRANCO Primary Care Provider [phone] Allergies No known active allergies Medications irbesartan (AVAPRO) 150 MG tablet 09/07/2023 Active dextromethorpha n-guaifenesin (ROBITUSSIN-DM) 10-100 MG/5ML syrup Take 5 mL by mouth Every 12 (Twelve) Hours. Active levocetirizine (XYZAL) 5 MG tablet Take 1 tablet by mouth Every Evening. Active levothyroxine (SYNTHROID, LEVOTHROID) 100 MCG tablet Take 1 tablet by mouth Daily. 90 tablet 1 12/02/2024 Active cabergoline (DOSTINEX) 0.5 MG tablet Take 2 tablets by mouth 2 (Two) Times a Week. 16 tablet 5 12/03/2024 Active Active Problems No known active problems Encounters Date Type Department Care Team Description 01/28/2025 Telephone [facility] [address] [facility] [address] [place] [address] Tiffani Morris MD [facility]- ENDO RECORDS from Last 3 Months Family History Medical History Relation Name Comments Diabetes Father Landon Bossio Hypertension Father Landon Bossio Cancer Mother Estephanie Bossio Diabetes Mother Estephanie Bossio Ovarian cancer Mother Estephanie Bossio Diabetes Sister Fanta Rosarioo Relation Name Status Comments Father Landon Bossio Alive Mother Estephanie Bossio Sister Fanta Lealsio Social History Tobacco Use Types Packs/Day Years [...] Sign Reading Time Taken Comments Blood Pressure 124/74 12/01/2024 9:45 AM EDT Pulse 72 12/01/2024 9:45 AM EDT Temperature - - Respiratory Rate - - Oxygen Saturation 97% 04/28/2024 7:52 AM EST Inhaled Oxygen Concentration - - Weight 117 kg (258 lb) 12/01/2024 9:45 AM EDT Height 165.1 cm (5' 5 ) 12/01/2024 9:45 AM EDT Body Mass Index 42.93 12/01/2024 9:45 AM EDT Plan of Treatment Upcoming Encounters Date Type Department Care Team (Late st Contact Info) Description 06/03/2025 9:30 AM EST Office Visit [facility] [address] [facility] [address] [place] [address] Tiffani Morris MD [address] [facility] [address] [place] [address] Health Maintenance Due Date Last Done Comments Annual Gynecologic Pelvic and Breast Exam 1961 PAP SMEAR 1982 MAMMOGRAM 2001 COLOGUARD 2006 COLON CANCER SCREENING 5 YEA R SIGMOIDOSCOPY [address] COLONOGRAPHY 2006 FECAL OCCULT BLOOD TEST 2006 FIT Testing (1 year) 2006 Pneumococcal Vaccine 50+ (1 of 1 - PCV) 2011 ZOSTER VACCINE (1 of 2) 2011 HEPATITIS C SCREENING 07/11/2020 ANNUAL WELLNESS VISIT 11/12/2020 11/13/2019 INFLUENZA VACCINE 01/15/2025 TDAP/TD VACCINES (3 - Td or Tdap) 11/12/2029 020, 05/06/2007 COLONOSCOPY 11/02/2034 11/02/2024 COLORECTAL CANCER SCREENING 11/02/2034 Insurance [facility] MEDICARE ADVANTAGE O Care Teams Proc Tech Relationship Specialty Start Date End Date Janiya Ledezma APRN [address] [place] [address] [place] [id number] PCP - General Nurse Practitioner 09/03/23
--- OUTSIDE RECORDS SUMMARY | 2025-03-22 09:45 | XMS_ITS | Clinical Summary ---
Author Organization [facility] Address [address] [place] [address] Care Team Providers Care Abalone Fisherman Name Role Phone AlbertaWard felipe Jeb Primary Care Provider [phone] Paul Jj MD Unavailable [phone] Haritha Inman Unavailable Allergies No known active allergies Medications HYDROcodone-acet aminophen ([place]) 7.5-325 MG tablet Take 1 tablet by [...] region 04/01/2017 Multilevel degenerative disc disease 04/01/2017 Social History Tobacco Use Types Packs/Day Years Used Date Smoking Tobacco: Former Cigarettes 1 7 - 1986 Smokeless Tobacco: Never Tobacco Cessation:Counseling [...] S Radiology [address], 1st [place] [address] 10/01/2025 1:45 PM EDT Office Visit [place] [facility] [address], [address] [place] [address] Paul Jj MD [address] [place] [address] Health Maintenance Due Date Last Done Comments [...] - Risk 60-74 years 1-dose series) 2021 [id number] Vaccine ( - 2024- season) 2025 05/19/2021, 08/31/2020, 08/10/2020 [facility]-Influenza Vaccine (#1) 2025 [facility]-DTaP,Tdap,and Td Vaccine s (3 - [...] this topic Insurance [employer] Care Teams Abalone Fisherman Relationship Specialty Start Date End Date [address] [place], [place] [id number] PCP - General 08/11/21 Paul Jj MD [address] [place] [address] Surgeon Neurosurgery 09/22/21 Haritha Inman PA [address] [place] [address] Physician Associate Relations Specialist Neurology 10/08/22
--- OUTSIDE RECORDS SUMMARY | 2025-03-22 09:45 | XMS_ITS | Encounter Summary ---
Author Organization [facility] Address [address] [place] [address] Care Team Providers Care Ribbon Inker Name Role Phone Janiya Ledezma APRN Primary Care Provider [phone] Reason for Visit * Reason Onset Date Comments [facility] ENDO RECORDS 01/28/2025 Encounter Details Date Type Department Care Team (Late st Contact Info) Description 01/28/2025 Telephone [facility]CR[facility]OLOGY [address] [facility] [address] [place] [address] Tiffani Morris MD [address] [facility] [address] [place] [address] [facility] RECORDS Social History Tobacco Use Types Packs/Day Years [...] Miscellaneous Notes * Telephone Encounter - Maxine Atwood MA - 01/28/2025 10:06 AM EDT Called the pt and told her a medical records needs to be signed. She is going to have one faxed to the office. Fax number was provided. * Telephone Encounter - David Siddiqui RegSched Rep - 01/28/2025 9:38 AM EDT Caller: Rosemary Tierney Anahi Relationship: Self Best call back number: [phone] What form or medical record are you requesting: ALL ENDO RECORDS Who is requesting this form or medical record from you: PATIENT How would you like to receive the form or medical records (pick-up, mail, fax): FAX If fax, what is the fax number: [phone] OR If mail, what is the address: [address] Timeframe paperwork needed: TRANG Additional notes: PATIENT NEEDS RECORDS TO BE SWITCHED TO [facility] BECAUSE THIS IS CLOSER TO HER HOME. PLEASE ADVISE documented in this encounter Plan of Treatment Upcoming Encounters Date Type Department Care Team (Late st Contact Info) Description 06/03/2025 9:30 AM EST Office Visit [facility] [address] [facility] [address] [place] [address] Tiffani Morris MD [address] [facility] [address] [place] [address] documented as of this encounter Visit Diagnoses Not on filedocumented in this encounter Care Teams Ribbon Inker Relationship Specialty Start Date End Date Janiya Ledezma APRN [address] [place] [address] [place] [id number] PCP - General Nurse Practitioner 09/03/23 documented as of this encounter
[2025-03-22 09:49] LABS: Microscopic, Urine URINE MICROSCOPIC (MICROSCOPIC)
[2025-03-22 10:25] LABS: Hematocrit 40.0 % (37.0-47.0); Hemoglobin 12.9 g/dL (12.2-16.2); Immature Granulocytes % 0.2 %; Mean Corpuscular HGB Conc 32.3 g/dL (31.8-35.4); Mean Corpuscular Hemoglobin 29.4 pg (27.0-31.2); Mean Corpuscular Volume 91.1 fl (81-99); Nucleated Red Blood Cells % 0 %; Platelet Count 236 K/mm3 (142-424); Red Blood Count 4.39 M/mm3 (4.20-5.40); Red Cell Distribution Width-SD 44.0 fL; White Blood Count 6.6 K/mm3 (4.8-10.8)
[2025-03-22 10:35] LABS: Bilirubin,Urine Negative (Negative); Color,Urine YELLOW (Yellow); Glucose,Urine (UA) Negative (Negative); Ketones,Urine Negative (Negative); Leukocyte Esterase,Urine 1+ (Negative); PH,Urine 6.0 (5.0-8.5); Protein,Urine Negative (Negative); Specific Gravity, Urine 1.015 (1.005-1.030); Urobilinogen,Urine 0.2 EU/dl (0.2)
[2025-03-22 11:41] LABS: Alanine Aminotransferase 27 U/L (12-78); Albumin Level 4.0 g/dl (3.5-5.0); Albumin/Globulin Ratio 1.5 (1.1-1.8); Alkaline Phosphatase 89 U/L (38-126); Anion Gap 13.3 mEq/L (5-15); Aspartate Amino Transferase 25 U/L (14-36); Bilirubin,Total 0.9 mg/dl (0.2-1.3); Blood Urea Nitrogen 13 mg/dl (7-17); Calcium 9.4 mg/dl (8.4-10.2); Carbon Dioxide 25 mmol/L (22.0-30.0); Chloride 105 mmol/L (98-107); Cholesterol 189 mg/dl (140-200); Creatinine,Serum 0.80 mg/dl (0.52-1.04); Estimated Glomerular Filt Rate 72 ml/min (>60); GFR (African American) 87 ML/MIN (>60); Globulin 2.6 g/dL (1.3-3.2); Glucose 114 mg/dl (74-100); HDL Cholesterol 45 mg/dl (40-60); Potassium 4.3 mmoL/L (3.5-5.1); Sodium 139 mmol/L (136-145); Total Protein,Serum 6.6 g/dl (6.3-8.2); Triglycerides 195 mg/dl (30-150)
[2025-03-22 11:42] LABS: Albumin Level 4.0 g/dl (3.5-5.0); Anion Gap 12.4 mEq/L (5-15); Blood Urea Nitrogen 14 mg/dl (7-17); Calcium 9.3 mg/dl (8.4-10.2); Carbon Dioxide 25 mmol/L (22.0-30.0); Chloride 106 mmol/L (98-107); Creatinine,Serum 0.80 mg/dl (0.52-1.04); Estimated Glomerular Filt Rate 72 ml/min (>60); GFR (African American) 87 ML/MIN (>60); Glucose 113 mg/dl (74-100); Phosphorous 3.9 mg/dl (2.5-4.5); Potassium 4.4 mmoL/L (3.5-5.1); Sodium 139 mmol/L (136-145)
[2025-03-22 11:56] LABS: 25-OH Vitamin D, Total 31.9 ng/mL (30-100)
[2025-03-22 12:11] LABS: Thyroid Stimulating Hormone 3.38 uIU/mL (0.465-4.68)
[2025-03-22 12:14] LABS: Free Thyroxine Index 2.6 ug/dL (5.93-13.13); T4 (Thyroxine) 8.5 ug/dl (5.53-11.0); Triiodothryronine (T3) Uptake 31 % (23.5-40.5)
[2025-03-22 12:34] LABS: Hepatitis C Ab Qual. W/ RFX NEGATIVE (Negative)
[2025-03-22 13:37] LABS: Bacteria,Urine Trace /lpf
[2025-03-22 16:53] LABS: Free T4 (Free Thyroxine) 1.13 ng/dl (0.78-2.19)
[2025-03-22 17:03] LABS: Hemoglobin A1C 5.7 % (4.0-6.0)
[2025-03-22 17:06] LABS: Thyroid Stimulating Hormone 3.50 uIU/mL (0.465-4.68)
[2025-03-23 18:01] LABS: Albumin 3.6 g/dL (2.9-4.4); Alpha-1-Globulin 0.2 g/dL (0.0-0.4); Alpha-2-Globulin 0.7 g/dL (0.4-1.0); Calcium, Ionized 5.2 mg/dL (4.5-5.6); Gamma Globulin 1.2 g/dL (0.4-1.8)
[2025-03-31 15:41] LABS: PDF SCANNED IMAGE; Serial Monitoring PDF SCANNED IMAGE
== END 2025-03-22 23:59 | disposition home or self-care (01) ==
LOC: LAB 09:43
PROVIDERS: PCP Nurse Practitioner Family; Visit Provider Student in an Organized Health Care Education/Training Program
DX: M85.851 Other specified disorders of bone density and structure, right thigh (principal); D35.2 Benign neoplasm of pituitary gland; E27.40 Unspecified adrenocortical insufficiency; E66.01 Morbid (severe) obesity due to excess calories; E03.9 Hypothyroidism, unspecified; I10 Essential (primary) hypertension; Z11.59 Encounter for screening for other viral diseases; Z11.4 Encounter for screening for human immunodeficiency virus [HIV]; Z13.220 Encounter for screening for lipoid disorders; E11.9 Type 2 diabetes mellitus without complications; R41.3 Other amnesia
CPT/HCPCS: 80053; 80061; 80069; 81001; 82306; 82330; 82523; 83036; 83970; 84080; 84146; 84155; 84165; 84436; 84439; 84443; 84479; 85025; 86803; 87086; 87389

== ENCOUNTER 2025-03-24 09:16 | Outpatient (CLI) | payer MEDICARE, SELFPAY ==
--- NOTE | 2025-03-24 09:30 | XR_ITS ---
FINAL REPORT TECHNIQUE: Bone densitometry calculations of the lumbar spine and left hip were obtained. CLINICAL HISTORY: PAtient has history of osteopenia of hip with FRAX COMPARISON: 08/22/2023 FINDINGS: The lumbar spine was not evaluated. Using the right forearm, the bone mineral density of one third is 0.687 g/cm2, corresponding to T-score of -0.1 and a Z score of 1.5. This is within the range of normal limits. Previously was 0.598 g/cm? with a T-score of -1.6. Using the left hip, the bone mineral density of the femoral neck is 0.796 g/cm2, corresponding to a T-score of -0.5 and a Z-score of 1.0. This is within the range of normal limits. Previously was 0.719 g/cm? with a T-score of -1.2. FRAX not reported because all T-scores at or above -1.0 NOTE: T-score: Standard deviation compared with peak bone mass of young adult mean. *Following the recommendations of the International Society of Bone densitometry, classification of hip BMD is based on the lower of two T-scores; total hip or femoral neck. IMPRESSION: 1. Bone mineral density of the right forearm within the range of normal limits. 2. Bone mineral density of the left femoral neck within the range of normal limits. Reviewed, Interpreted and Dictated by Chelo Lui MD Transcribed by Fanny Spence Authenticated and [facility]
== END 2025-03-24 23:59 | disposition home or self-care (01) ==
LOC: RAD 09:17
PROVIDERS: PCP Nurse Practitioner Family; Visit Provider Student in an Organized Health Care Education/Training Program
DX: M81.0 Age-related osteoporosis without current pathological fracture (principal); M85.80 Other specified disorders of bone density and structure, unspecified site; Z91.89 Other specified personal risk factors, not elsewhere classified; Z87.81 Personal history of (healed) traumatic fracture
CPT/HCPCS: 77080

== ENCOUNTER 2025-03-31 07:52 | Outpatient (CLI) | payer MEDICARE, SELFPAY ==
--- OUTSIDE RECORDS SUMMARY | 2025-03-31 07:54 | XMS_ITS | Encounter Summary ---
Author [facility] Address [address] [place] [address] Care Team Providers Care Deputy Harbormaster Name Role Phone Janiya Ledezma JOAN Primary Care Provider [phone] Encounter Details Date Type Department Care Team (Late Contact Info) Description 12/02/2024 Results Follow-Up [facility] ENDOCRINOLOGY [address] [address] Tiffani Morris MD [address] [place] [address] Social History Tobacco Use Types Packs/Day [...] Description 06/03/2025 9:30 AM EST Office Visit [facility]CR[facility] [address] [facility] [address] [place] [address] Tiffani Morris MD [address] [place] [phone] documented as of this encounter Visit Diagnoses Not on filedocumented in this encounter Care Teams Deputy Harbormaster Relationship Specialty Start Date End Date Janiya Ledezma APRN [address] [place] [address] [place] [id number] PCP - General Nurse Practitioner 09/03/23 documented as of this encounter
--- OUTSIDE RECORDS SUMMARY | 2025-03-31 07:54 | XMS_ITS | Clinical Summary ---
Author Organization [facility] Address [address] [place] [address] Care Team Providers Care Poultry Farmworker Name Role Phone Darien Janiya FRANCO Primary Care Provider [phone] Allergies No known active allergies Medications irbesartan [...] Type Department Care Team Description 01/28/2025 Telephone [facility] ENDOCRINOLOGY [address] [facility] [address] [place] [address] Tiffani Morris MD [facility] ENDO RECORDS from Last 3 Months Family History Medical History Relation Name Comments Diabetes Father Landon Bossio Hypertension Father Landon Bossio Cancer Mother Estephanie Bossio Diabetes Mother Estephanie Bossio Ovarian cancer Mother Estephanie Bossio Diabetes Sister Fanta Rosarioo Relation Name Status Comments Father Lanodn Bossio Alive Mother Estephanie Bossio Sister Fanta [...] Description 06/03/2025 9:30 AM EST Office Visit [facility] ENDOCR[facility] [address] [facility] [address] [place] [address] Tiffani Morris MD [address] [facility] [address] [place] [address] Health Maintenance Due Date Last Done Comments [...] 11/02/2034 11/02/2024 COLORECTAL CANCER SCREENING 11/02/2034 Insurance PENDING SALE TO [facility] MEDICARE ADVANTAGE O Care Teams Poultry Farmworker Relationship Specialty Start Date End Date Janiya Ledezma APRN [address] [place] [address] [place] [id number] PCP - General Nurse Practitioner 09/03/23
--- OUTSIDE RECORDS SUMMARY | 2025-03-31 07:54 | XMS_ITS | Clinical Summary ---
Author Organization [facility] Address [address] [place] [address] Care Team Providers Care Ux Information Architect Name Role Phone AlbertaWard felipe Jeb Primary Care Provider [phone] Paul Jj MD Unavailable [phone] Haritha Inman Unavailable [phone] Allergies No known active allergies Medications HYDROcodone-acet aminophen ([place]) 7.5-325 MG tablet Take 1 tablet by [...] S Radiology [address]st [place] [address] 10/01/2025 1:45 PM EDT Office Visit [place] [facility] [address], [address] [place] [address] Paul Jj MD [address] [place] [address] [address] Health Maintenance Due Date Last Done Comments [facility]-Depression Screening 1961 [facility]-HIV Screening 1961 [facility]-Hepatitis C Screening 1961 [facility]-Medicare Annual Wellness (AWV) 1961 [facility]-/Child/Adol SDOH Screenings 1961 [facility]- SDOH Screenings 1979 [facility]Y-Adult SDOH Screenings 1979 CT Colonography 2006 Colonoscopy 2006 FIT-DNA 2006 FIT 2006 FOBT 2006 Sigmoidoscopy 2006 [facility]-Colorectal Cancer Screening 2006 [facility]-Breast Cancer Screening 2011 [facility]Y-Pneumococcal Vaccine: 50 + Years (1 of 1 - PCV) 2011 [facility]Y-Zoster Vaccines (1 of 2) 2011 [facility]Y-RSV Vaccine: 60+ Years o r (1 - Risk 60-74 years 1-dose series) 2021 [id number] Vaccine ( - 2024- season) 2025 05/19/2021, [...] this topic Insurance [employer] MED[employer] Care Teams Ux Information Architect Relationship Specialty Start Date End Date [address] [place], [place] [phone] PCP - General 08/11/21 Paul Jj MD [address] [place] [address] Surgeon Neurosurgery 09/22/21 Haritha Inman PA [address] [place] [address] Physician Stud Beef Cattle Farmer Neurology 10/08/22
[2025-03-31 10:47] LABS: Cholesterol 171 mg/dl (140-200); HDL Cholesterol 42 mg/dl (40-60); Triglycerides 161 mg/dl (30-150)
== END 2025-03-31 23:59 | disposition home or self-care (01) ==
PROVIDERS: PCP Nurse Practitioner Family; Visit Provider Nurse Practitioner Family
DX: E78.5 Hyperlipidemia, unspecified (principal); Z13.220 Encounter for screening for lipoid disorders
CPT/HCPCS: 36415; 80061

== ENCOUNTER 2025-04-07 09:12 | Outpatient (CLI) | payer MEDICARE, SELFPAY ==
--- OUTSIDE RECORDS SUMMARY | 2025-04-07 09:22 | XMS_ITS | Encounter Summary ---
[facility] Address [address] [place] [address] Care Team Providers Care Middle [employer] Art Teacher Name Role Phone Janiya Ledezma JOAN Primary Care Provider [phone] Encounter Details Date Type Department Care Team (Late Contact Info) Description 12/02/2024 Results Follow-Up [facility] ENDOCRINOLOGY [address] [address] Tiffani Morris MD [address] [place] [id number] Social History Tobacco Use Types Packs/Day [...] Description 06/03/2025 9:30 AM EST Office Visit [facility] [address] [facility] [place] [address] Tiffani Morris MD [address] [place] [phone] documented as of this encounter Visit Diagnoses Not on filedocumented in this encounter Care Teams Middle [employer] Art Teacher Relationship Specialty Start Date End Date Janiya Ledezma APRN [address] [place] [id number] PCP - General Nurse Practitioner 09/03/23 documented as of this encounter
--- OUTSIDE RECORDS SUMMARY | 2025-04-07 09:22 | XMS_ITS ---
Laboratory report Created on: March 31, 2025 GABINO MULLINS : 1960 Sex: Female Author Organization Unknown PROBLEMS Problems List Code Description RESULTS Laboratory Orders Date Order Code Test 2025-03-22 [id number] C-TELOPEPTIDE, S STALIN 2025-03-22 [id number] PROTEIN ELECTRO. ,S 2025-03-22 [id number] CALCIUM, IONIZED , SERUM 2025-03-22 [id number] PROLACTIN 2025-03-22 [id number] ALK PHOSPHATASE, BONE SPECIFIC Laboratory Results Date LOINC Test Value Unit Reference Range Interpre tation 2025-03-22 [id number] C-TELOPEPTIDE, SERUM 413 PG/ML 2025-03-22 2885-2 PROTEIN, TOTAL 6.8 G/DL 6.0-8.5 2025-03-22 2862-1 ALBUMIN 3.6 G/DL 2.9-4.4 2025-03-22 2865-4 ZHDCN-2-VBHRFPLM .2 G/DL 0.0-0.4 2025-03-22 2868-8 BLHLA-7-HQWLOVVU .7 G/DL 0.4-1.0 2025-03-22 2871-2 BETA GLOBULIN 1.1 G/DL 0.7-1.3 2025-03-22 2874-6 GAMMA GLOBULIN 1.2 G/DL 0.4-1.8 2025-03-22 38350-5 M-SPIKE NOB G/DL NOT OBSERVED 2025-03-22 12820-3 GLOBULIN, TOTAL 3.2 G/DL 2.2-3.9 2025-03-22 1759-0 A/G RATIO 1.1 0.7-1.7 2025-03-22 51666-0 PDF IMAGE 2025-03-22 20012-4 CALCIUM, IONIZED, SERUM 5.2 MG/DL 4.5-5 .6 2025-03-22 2842-3 PROLACTIN 3.3 NG/ML 3.6-25.2 L 2025-03-22 51037-2 ALK PHOSPHATASE, BONE SPECIFIC 15.8 UG/L 2025-03-22 75362-1 PDF IMAGE
--- OUTSIDE RECORDS SUMMARY | 2025-04-07 09:22 | XMS_ITS | Clinical Summary ---
Author Organization [facility] Address [address] [place] [address] Care Team Providers Care Filteration Operator Name Role Phone Darien Janiya FRANCO Primary Care Provider [phone] Allergies No known active allergies Medications irbesartan [...] Type Department Care Team Description 01/28/2025 Telephone [facility] END[facility]CR[facility] [address] [facility] [address] [place] [address] Tiffani Morris MD [facility] [...] Description 06/03/2025 9:30 AM EST Office Visit [facility] [address] [facility] [address] [place] [address] Tiffani Morris MD [address] [facility] [address] [place] [address] Health Maintenance Due Date Last Done Comments [...] 11/02/2034 11/02/2024 COLORECTAL CANCER SCREENING 11/02/2034 Insurance [facility] MEDICARE ADVANTAGE O Care Teams Filteration Operator Relationship Specialty Start Date End Date Janiya Ledezma APRN [address] [place] [address] [place] [phone] PCP - General Nurse Practitioner 09/03/23
--- OUTSIDE RECORDS SUMMARY | 2025-04-07 09:22 | XMS_ITS | Clinical Summary ---
Author Organization [facility] Address [address] [place] [address] Care Team Providers Care Level Vial Curvature Gauger Name Role Phone AlbertaWard felipe Jeb Primary Care Provider [phone] Paul Jj MD Unavailable [phone] Haritha Inman Unavailable [phone] Allergies No known active allergies Medications HYDROcodone-acet aminophen ([place]) 7.5-325 MG tablet Take 1 tablet by [...] S Radiology [address] 1[address] [place] [address] 10/01/2025 1:45 PM EDT Office Visit [facility] [address] [place] [address] Paul Jj MD [address] [place] [address] Health Maintenance Due Date Last Done Comments [...] - Risk 60-74 years 1-dose series) 2021 [id number] Vaccine ( - 2024- season) 2025 05/19/2021, [...] this topic Insurance [employer] Care Teams Level Vial Curvature Gauger Relationship Specialty Start Date End Date [address] [place], [place] [id number] PCP - General 08/11/21 Paul Jj MD [address] [place] [address] Surgeon Neurosurgery 09/22/21 Haritha Inman PA [address] [place] [address] Physician Leasing Representative Neurology 10/08/22
[2025-04-07 12:01] LABS: Collection Time,Urine 24 hours; Creatinine 24 Hour,Urine 1726 mg/24hr (630-2500); Total Volume,Urine 1475 mL (600-1600)
[2025-04-08 13:41] LABS: Calcium, Urine 10.7 mg/dL (Not Estab.)
== END 2025-04-07 23:59 | disposition home or self-care (01) ==
LOC: LAB 09:13
PROVIDERS: PCP Nurse Practitioner Family; Visit Provider Student in an Organized Health Care Education/Training Program
DX: R79.89 Other specified abnormal findings of blood chemistry (principal)
CPT/HCPCS: 82340; 82570

== ENCOUNTER 2025-04-08 13:02 | Outpatient (CLI) | payer MEDICARE, SELFPAY ==
--- NOTE | 2025-04-08 13:05 | XR_ITS ---
FINAL REPORT CLINICAL HISTORY: surgical clearance, non smoker, cough x couple days COMPARISON: 10/14/2023 FINDINGS: No acute pulmonary density is evident. There is no evidence of effusion or other pleural disease. The mediastinum has a normal appearance. The cardiac silhouette is unremarkable. IMPRESSION: Unremarkable chest exam. Reviewed, Interpreted and Dictated by Sharon Mckeon MD Transcribed by Kelley Castro Authenticated and [facility] [place] [place]
--- OUTSIDE RECORDS SUMMARY | 2025-04-08 13:29 | XMS_ITS | Clinical Summary ---
Author Organization [facility] Address [address] [place] [address] Care Team Providers Care Night Auditor Name Role Phone AlbertaWard felipe Jeb Primary Care Provider Paul Jj MD Unavailable [phone] Haritha Inman Unavailable [phone] Allergies No known active allergies Medications HYDROcodone-acet aminophen ([place]) 7.5-325 MG tablet Take 1 tablet by [...] S Radiology [address] [place] [address] 10/01/2025 1:45 PM EDT Office Visit [facility] [address] [place] [address] Paul Jj MD [address] [place] [address] Health Maintenance Due Date Last Done Comments [...] - Risk 60-74 years 1-dose series) 2021 [id number] Vaccine ( - 2024- season) 2025 05/19/2021, [...] this topic Insurance [employer] Care Teams Night Auditor Relationship Specialty Start Date End Date [address] [place], [place] [phone] PCP - General 08/11/21 Paul Jj MD [address] [place] [address] Surgeon Neurosurgery 09/22/21 Haritha Inman PA [address] [place] [address] Physician Order Make Up Clerk Neurology 10/08/22
--- OUTSIDE RECORDS SUMMARY | 2025-04-08 13:29 | XMS_ITS | Encounter Summary ---
[facility] Address [address] [place] [address] Care Team Providers Care Attendant Coin Operated Laundry Name Role Phone Janiya Ledezma JOAN Primary Care Provider [phone] Encounter Details Date Type Department Care Team (Late Contact Info) Description 12/02/2024 Results Follow-Up [facility] ENDOCRINOLOGY [address] [address] Tiffani Morris MD [address] [place] [phone] Social History Tobacco Use Types Packs/Day [...] Description 06/03/2025 9:30 AM EST Office Visit [facility] [address] [facility] [address] [place] [address] Tiffani Morris MD [address] [place] [phone] documented as of this encounter Visit Diagnoses Not on filedocumented in this encounter Care Teams Attendant Coin Operated Laundry Relationship Specialty Start Date End Date Janiya Ledezma APRN [address] [place] [id number] PCP - General Nurse Practitioner 09/03/23 documented as of this encounter
--- OUTSIDE RECORDS SUMMARY | 2025-04-08 13:29 | XMS_ITS | Clinical Summary ---
Author Organization [facility] Address [address] [place] [address] Care Team Providers Care Metal Tester Name Role Phone Darien Janiya FRANCO Primary Care Provider [phone] Allergies No known active allergies Medications irbesartan [...] Type Department Care Team Description 01/28/2025 Telephone [facility] ENDOCR[facility]OLOGY [address] [facility] [address] [place] [address] Tiffani Morris MD [facility] [...] Description 06/03/2025 9:30 AM EST Office Visit [facility] END[facility]CRIN[facility]Y [address] [facility] [address] [place] [address] Tiffani Morris MD [address] [facility] [address] [place] [address] Health Maintenance Due Date Last Done Comments [...] COLORECTAL CANCER SCREENING 11/02/2034 Insurance [facility] MEDICARE ADVANTAGE O Care Teams Metal Tester Relationship Specialty Start Date End Date Janiya Ledezma APRN [address] [place] [address] [place] [phone] PCP - General Nurse Practitioner 09/03/23
--- NOTE | 2025-04-08 15:15 | CA_ITS ---
APPROVED REPORT EXAM: Limited 2D and color flow Echocardiogram Fork Lift Technician: Denise Gonzales RCS, RVS Ht: 5 ft 5 in Wt: 257lbs BSA: 2.20 BP: 132/88 mmHg Indications: Edema, Pre-op, HART, Ex-smoker, Cough, Pituitary tumor-cabergoline treatment 2D Dimensions IVSd 1.10 cm F: 0.6-1.0 LVEF (Visual) 65.00 % PWd 0.87 cm F: 0.6 - 1.0 LA Volume 69.40 mL LVDd 4.22 cm F: 3.9 - 5.3 LA Volume Index 31.231105 mL/m2 (M/F) 16-34 LVDs 2.73 cm F: 2.2 - 3.5 Left Atrium 3.93 cm F: 2.7 - 3.8 M-Mode Dimensions RVDd 1.97 cm (0.9-2.6) LA Diam 3.83 cm (1.9-4.0) LVDd 5.81 cm (3.5-5.7) LVDs 3.59 cm (3.5-5.7) IVSd 1.15 cm (0.6-1.1) PWd 1.15 cm (0.6-1.1) EF (Teich) 67.60% EPSs 0.52 cm FS 38.20% EDV (Teich) 167.20 mL TAPSE 2.18 (<1.7) ESV (Teich) 54.10 mL LV Diastology E Decel Time 200 (160-240 msec) E/A Ratio 0.93 MED A' 9.80 cm/s LAT A' 11.00 cm/s Aortic Valve MATT Index 1.53 cm2/m2 AoV Peak Robinson. 128.0 (50-130 cm/s) AO Peak GR. 6.50 mmHg AO Mean GR. 3.40 (<5 mmHg) AO VTI 25.6 (18-25 cm) MATT (VTI) 3.44 (2.5-4.5 cm2) Mitral Valve MV A Velocity 74.0 (40-130 cm/s) E/A Ratio 0.93 Pulmonary Valve PV Peak Velocity 88.0 (50-150 cm/s) Other Information Study Quality: Fair Conclusion This is a limited TTE to evaluate LV systolic function. Limited windows are obtained. The left ventricle is normal in size. There is increased LV wall thickness. There is normal global LV systolic function. LVEF is 55%. Electronically signed by : Yanna Fountain MD 04/13/2025 14:39:45
== END 2025-04-08 23:59 | disposition home or self-care (01) ==
LOC: RT 13:03
PROVIDERS: PCP Nurse Practitioner Family; Visit Provider Student in an Organized Health Care Education/Training Program
DX: Z01.811 Encounter for preprocedural respiratory examination (principal); Z01.810 Encounter for preprocedural cardiovascular examination; I51.7 Cardiomegaly; R05.9 Cough, unspecified; T42.8X5A Adverse effect of antiparkinsonism drugs and other central muscle-tone depressants, initial encounter; Z87.891 Personal history of nicotine dependence; R60.9 Edema, unspecified
CPT/HCPCS: 71046; 93308